=== PATIENT | male | born 1975 | race Two or more races ===

== ENCOUNTER 2017-09-09 03:07 | Emergency (ER) | payer MEDICAID, OTHER ==
[2017-09-09 03:17] VITALS: BP 128/82
--- NOTE | 2017-09-09 03:34 | EDM.PDOC ---
ED HPI GENERAL MEDICAL PROBLEM - General Chief Complaint: Chest Pain Stated Complaint: RIB PAIN Time Seen by Provider: 09/09/17 03:17 Source of Information: Reports: Patient, Family () History Limitations: Reports: No Limitations - History of Present Illness INITIAL COMMENTS - FREE TEXT/NARRATIVE: The patient states that he was roughhousing with some friends last night around 22:30, when a friend bearhug him, the patient twisted the wrong way, and he developed pain to the inferior aspect of his left ribs. He states that when he rolled over this morning, the pain became much worse. His pain is also made worse with a cough. The patient has not noticed a visible injury to the area. No prior injury to the same area. The patient's PCP is Basilia Muniz. Left Thoracic Pain Score (Numeric/FACES): 9 - Related Data Allergies Allergy/AdvReac Type Severity Reaction Status Date / Time No Known Allergies Allergy Verified 06/20/16 11:56 Home Meds: Home Meds Amoxicillin 875 mg PO BID 09/09/17 [History] Naproxen 500 mg PO ASDIRECTED PRN 09/09/17 [History] Orphenadrine [Norflex] 1 tab PO Q12H PRN #12 tab.er 09/09/17 [Rx] Orphenadrine [Norflex] 100 mg PO ASDIRECTED PRN 09/09/17 [History] Past Medical History Endocrine/Metabolic History: Reports: Obesity/BMI 30+ - Past Surgical History Musculoskeletal Surgical History: Reports: Arthroscopic Knee (left), Other (See Below) (Left 5th finger fusion) Social & Family History - Family History Family Medical History: Noncontributory - Tobacco Use Smoking Status *Q: Never Smoker - Caffeine Use Caffeine Use: Reports: Coffee, Soda - Alcohol Use Alcohol Use History: Yes Alcohol Use Frequency: Socially - Recreational Drug Use Recreational Drug Use: No - Living Situation & Occupation Living situation: Reports: , with Spouse, with Family (4 kids, grandson, son-in-law) Occupation: Employed ([employer]) ED ROS GENERAL - Review of Systems Review Of Systems: See Below Constitutional: Reports: No Symptoms HEENT: Reports: Other (Cold-like symptoms for the past week, including rhinorrhea, cough, sneezing) Respiratory: Reports: No Symptoms Cardiovascular: Reports: No Symptoms Endocrine: Reports: No Symptoms GI/Abdominal: Reports: No Symptoms : Reports: No Symptoms Musculoskeletal: Reports: No Symptoms Skin: Reports: No Symptoms Neurological: Reports: No Symptoms Psychiatric: Reports: No Symptoms Hematologic/Lymphatic: Reports: No Symptoms Immunologic: Reports: No Symptoms ED EXAM, GENERAL - Physical Exam Exam: See Below Exam Limited By: No Limitations General Appearance: Alert, WD/WN, No Apparent Distress Eye Exam: Bilateral Eye: Normal Inspection Ears: Normal External Exam, Hearing Grossly Normal Nose: Normal Inspection, No Blood Throat/Mouth: Normal Inspection, Normal Lips, Normal Voice, No Airway Compromise Head: Atraumatic, Normocephalic Neck: Normal Inspection, Full Range of Motion Respiratory/Chest: No Respiratory Distress, Lungs Clear, Normal Breath Sounds, No Accessory Muscle Use, Other (No visible abnormality to the lower left ribs, anterior axial line, however, there is reproducible tenderness to palpation of the area. No rub to auscultation.). No: Crackles, Rhonchi, Wheezing, Pleural Rub Cardiovascular: Normal Peripheral Pulses, Regular Rate, Rhythm, No Gallop, No JVD, No Murmur, No Rub Peripheral Pulses: 4+: Radial (L), Radial (R) GI/Abdominal: Normal Bowel Sounds, Soft, Non-Tender, No Organomegaly, No Distention, No Abnormal Bruit, No Mass (Male) Exam: Deferred Rectal (Males) Exam: Deferred Back Exam: Normal Inspection, Full Range of Motion, NT Extremities: Normal Inspection, Normal Range of Motion, Normal Capillary Refill Neurological: Alert, Oriented, Normal Cognition, No Motor/Sensory Deficits Psychiatric: Normal Affect Skin Exam: Warm, Dry, Intact, Normal Color, No Rash Course - Vital Signs Last Recorded V/S: Last Vital Signs Temp 36.4 C 09/09/17 03:14 Pulse 80 09/09/17 03:14 Resp 16 09/09/17 03:14 BP 128/82 09/09/17 03:14 Pulse Ox 98 09/09/17 03:14 - Orders/Labs/Meds Orders: Active Orders 24 hr Category Date Time Status Chest 2V [CR] Stat Exams 09/09/17 03:28 Ordered Ibuprofen [Motrin] Med 09/09/17 03:45 Once 800 mg PO ONETIME ONE Orphenadrine [Norflex] Med 09/09/17 03:44 Stat 100 mg PO ONETIME STA - Re-Assessments/Exams Free Text/Narrative Re-Assessment/Exam: 09/09/17 03:45 Two-view chest radiograph appears to be grossly normal. Cardiac silhouette is within normal limits. No pulmonary vascular congestion. No pleural effusions. No focal infiltrate. No pneumothorax. Formal read per the Radiologist pending. 09/09/17 03:45 The patient's left-sided pain is most likely due to a muscle spasm. I have ordered Norflex and ibuprofen. Departure - Departure Time of Disposition: 03:48 Disposition: Home, Self-Care 01 Condition: Good Clinical Impression: Muscle spasm - Discharge Information Referrals: Basilia Muniz PA-C [Primary Care Provider] - Forms: ED Department Discharge Additional Instructions: You were seen in the emergency room after developing left sided pain after roughhousing with some friends. Workup in the ER included a chest x-ray, which returned normal. No sign of a broken rib or other injury. Your pain is MOST LIKELY due to a muscle spasm. You have been started on the muscle relaxant Norflex. A prescription for this has been sent to the Pharmacy, [address] They will be open today between noon and 4:00 PM. Take one tablet of Norflex every 12 hours, as prescribed. Take [id number] ibuprofen, 2-3 tablets (400-600 mg) every 8 hours, with food, as needed for pain. If your pain continues until Sunday, please follow-up with your PCP, Basilia Muniz. If any other problems, please do not hesitate to return to the ER. - My Orders Last 24 Hours: My Active Orders 09/09/17 03:28 Chest 2V [CR] Stat 09/09/17 03:44 Orphenadrine [Norflex] 100 mg PO ONETIME STA 09/09/17 03:45 Ibuprofen [Motrin] 800 mg PO ONETIME ONE - Assessment/Plan Last 24 Hours: My Active Orders 09/09/17 03:28 Chest 2V [CR] Stat 09/09/17 03:44 Orphenadrine [Norflex] 100 mg PO ONETIME STA 09/09/17 03:45 Ibuprofen [Motrin] 800 mg PO ONETIME ONE
[2017-09-09] MEDS ORDERED: Orphenadrine 100 MG Tab.ER PO STA (03:44)
[2017-09-09] MEDS ORDERED: Ibuprofen 800 MG Tab PO ONE (03:45)
--- NOTE | 2017-09-09 12:00 | CR ---
Chest: Two views of the chest were obtained. Comparison: No prior study. Heart size and mediastinum are normal. Lungs are clear. Bony structures are unremarkable. Impression: 1. Nothing acute is identified on two-view chest x-ray. Diagnostic code #1
== END 2017-09-09 04:04 | disposition home or self-care (01) ==
LOC: JD.ED 03:07
DX: M62.838 Other muscle spasm (principal); X50.1XXA Overexertion from prolonged static or awkward postures, initial encounter
CPT/HCPCS: 71046; 99283; A9270

== ENCOUNTER 2018-04-14 22:34 | Emergency (ER) | payer BC ==
[2018-04-14 22:51] VITALS: BP 159/101
[2018-04-14] MEDS ORDERED: HYDROmorphone 1 MG/ML Syringe IVPUSH ONE (23:20)
[2018-04-14] MEDS ORDERED: Sodium Chloride 0.9% 10 ML Syringe FLUSH PRN (23:20)
[2018-04-14] MEDS ORDERED: Dexamethasone 4 MG/ML 5 ML MDV IV ONE (23:20)
[2018-04-14] MEDS ORDERED: Clindamycin Phosphate 600 MG in Sodium Chloride 0.9% 100 ML IV ONE (23:21)
[2018-04-14] MEDS ORDERED: Metoclopramide 10 MG/2 ML SDV IVPUSH ONE (23:21)
--- NOTE | 2018-04-14 23:22 | EDM.PDOC ---
ED HPI GENERAL MEDICAL PROBLEM - General Chief Complaint: ENT Problem Stated Complaint: LEFT SIDE OF BODY FACE PAIN AND NECK AND SHOULDER Time Seen by Provider: 04/14/18 23:20 Source of Information: Reports: Patient History Limitations: Reports: No Limitations - History of Present Illness INITIAL COMMENTS - FREE TEXT/NARRATIVE: 42-year-old male attends the ED with severe left artemio-facial pain related to dental infection. Patient is currently following up with a dentist and is having dental work completed. Identified to have a dental infection and was started on amoxicillin 500 mg 3 times daily last week. He states he was doing pretty good up until tonight when the pain suddenly increased severely. Pain shoots up underneath his left eye shoots into his left ear along the mandible and along the left side of his neck. Patient has numerous severely decayed teeth both upper and lower on the left side. No fever or chills. He comes to the ED primarily seeking pain medication is nothing at home is helping. Onset: Today Onset Date: 04/14/18 Onset Time: 21:30 Duration: Minutes:, Constant, Getting Worse Location: Reports: Face (Left hemifacial pain.), Radiates to (Left mandible left ear and up underneath his left eye) Quality: Reports: Ache, Pressure, Throbbing, Other Severity: Severe (Pounding severe constant pain) Improves with: Reports: None ( 10 out of 10) Worsens with: Reports: None Context: Reports: Other (No on multiple dental caries both upper and lower left) . Denies: Activity, Exercise, Lifting, Sick Contact, Trauma Treatments MAGAZINE FEEDER: Reports: Acetaminophen ( side.), NSAIDS (Motrin.) Left Shoulder Pain Score (Numeric/FACES): 10 - Related Data Allergies Allergy/AdvReac Type Severity Reaction Status Date / Time No Known Allergies Allergy Verified 04/14/18 22:45 Home Meds: Home Meds Amoxicillin 1 tab PO TID 04/14/18 [History] Clindamycin HCl 300 mg PO TID #21 capsule 04/15/18 [Rx] oxyCODONE HCl/Acetaminophen [Percocet 5-325 mg Tablet] 1 - 2 each PO Q4H PRN # 20 tablet 04/15/18 [Rx] Past Medical History - Past Health History Medical/Surgical History: Denies Medical/Surgical History Genitourinary History: Reports: Renal Calculus Musculoskeletal History: Reports: Fracture Other Musculoskeletal History: L Ankle, L oink, middle and thumb fingers Endocrine/Metabolic History: Reports: Obesity/BMI 30+ - Past Surgical History Male Surgical History: Reports: None Musculoskeletal Surgical History: Reports: Arthroscopic Knee Social & Family History - Family History Family Medical History: Noncontributory - Tobacco Use Smoking Status *Q: Never Smoker Second Hand Smoke Exposure: No - Caffeine Use Caffeine Use: Reports: Coffee, Soda, Tea - Recreational Drug Use Recreational Drug Use: No - Living Situation & Occupation Living situation: Reports: , with Spouse, with Family (4 kids, grandson, son-in-law) Occupation: Employed ([employer]) ED ROS ENT - Review of Systems Review Of Systems: See Below Constitutional: Reports: Decreased Appetite. Denies: Fever, Chills, Malaise, Weakness, Fatigue, Weight Loss HEENT: Reports: Dental Pain (Severe dental pain left upper teeth. He's not sure which tooth is causing the pain but it appears most likely it is a broken off canine tooth.), Ear Pain (Pain is referred to the left ear.), Other Respiratory: Reports: No Symptoms (Pain left mandible and down the left side of his neck) Cardiovascular: Reports: No Symptoms Endocrine: Reports: No Symptoms GI/Abdominal: Reports: No Symptoms : Reports: No Symptoms Musculoskeletal: Reports: No Symptoms Skin: Reports: No Symptoms Neurological: Reports: No Symptoms Psychiatric: Reports: No Symptoms Hematologic/Lymphatic: Reports: No Symptoms Immunologic: Reports: No Symptoms ED EXAM, ENT - Physical Exam Exam: See Below Exam Limited By: No Limitations General Appearance: Alert, Moderate Distress (Moderate to severe pain.) Eye Exam: Bilateral Eye: Normal Inspection Ears: Normal TMs Mouth/Throat: Dental Abcess, Dental Pain (Patient has severe dental caries involving the left lower molars where there were 60% destroyed by dental caries. On the upper he has a canine tooth that is broken off at the gingiva margin which I suspect is causing the current infective process. The bicuspid teeth and his first molar are severely decayed as well however. Any of the 4 could be causing his dental pain and infection.), Other (No facial swelling but tenderness in the distribution of the maxillary sinus.). No: Gum Swelling, Hoarse Voice, Lip Swelling, Lip Ulcers, Muffled Voice, Oral Ulcers, Perioral Cyanosis, Peritonsillar Mass, Pharyngeal Erythema, Teething, Throat Pain, Throat Swelling, Tongue Swelling, Tonsillar Erythema, Tonsillar Exudates, Tonsillar Swelling, Trismus Head: Facial Tenderness (Left artemio-face particularly left maxillary sinus and left mandible anterior to his ear. There is no preauricular adenopathy) Neck: Normal Inspection, Supple, Non-Tender, Full Range of Motion. No: Lymphadenopathy (L), Lymphadenopathy (R) Respiratory/Chest: No Respiratory Distress, Lungs Clear, No Accessory Muscle Use , Respiratory Distress (Tachypnea gone exam but it's due to pain response.) Cardiovascular: Normal Peripheral Pulses, Regular Rate, Rhythm, No Murmur, Bradycardia (60/m) Course - Vital Signs Last Recorded V/S: Last Vital Signs Temp 36.6 C 04/14/18 22:46 Pulse 59 L 04/14/18 22:46 Resp 20 04/14/18 22:46 BP 159/101 H 04/14/18 22:46 Pulse Ox 99 04/14/18 22:46 - Orders/Labs/Meds Orders: Active Orders 24 hr Category Date Time Status Peripheral IV Care [RC] . DIRECTED Care 04/14/18 23:20 Active Ketorolac [Toradol] Med 04/14/18 23:30 Active 30 mg IVPUSH ONETIME Sodium Chloride 0.9% [Saline Flush] Med 04/14/18 23:20 Active 10 ml FLUSH ASDIRECTED PRN Peripheral IV Insertion Adult [OM.PC] Stat Oth 04/14/18 23:20 Ordered Medication Orders Ketorolac Tromethamine (Toradol) 30 mg IVPUSH ONETIME MARTÍN Last Admin: 04/14/18 23:39 Dose: 30 mg Sodium Chloride (Saline Flush) 10 ml FLUSH ASDIRECTED PRN PRN Reason: Keep Vein Open Last Admin: 04/14/18 23:43 Dose: 10 ml Meds: Medications Generic Name Dose Route Start Last Admin Trade Name Freq PRN Reason Stop Dose Admin Ketorolac Tromethamine 30 mg 04/14/18 23:30 04/14/18 23:39 Toradol IVPUSH 30 mg ONETIME MARTÍN Administration Sodium Chloride 10 ml 04/14/18 23:20 04/14/18 23:43 Saline Flush FLUSH 10 ml ASDIRECTED PRN Administration Keep Vein Open Discontinued Medications Generic Name Dose Route Start Last Admin Trade Name Sandie PRN Reason Stop Dose Admin Dexamethasone 10 mg 04/14/18 23:20 Dexamethasone IV 04/14/18 23:21 ONETIME ONE Dexamethasone Confirm 04/14/18 23:32 04/14/18 23:45 Dexamethasone Administered 04/14/18 23:33 Not Given Dose 10 mg .ROUTE .STK-MED ONE Dexamethasone 10 mg 04/14/18 23:43 04/14/18 23:44 Dexamethasone IVPUSH 04/14/18 23:44 10 mg ONETIME ONE Administration Hydromorphone HCl 1 mg 04/14/18 23:20 04/14/18 23:37 Dilaudid IVPUSH 04/14/18 23:21 1 mg ONETIME ONE Administration Clindamycin Phosphate 600 mg/ 104 mls @ 100 mls/hr 04/14/18 23:21 04/14/18 23 :47 Sodium Chloride IV 04/15/18 00:23 100 mls/hr ONETIME ONE Administration Metoclopramide HCl 10 mg 04/14/18 23:21 04/14/18 23:35 Reglan IVPUSH 04/14/18 23:22 10 mg ONETIME ONE Administration - Radiology Interpretation Free Text/Narrative:: 42-year-old male presents to the ED with severe left hemifacial pain for the last 2-1/2 hours. Patient has known multiple bad teeth both upper and lower on the left side and is currently seeing a dentist in this regard diagnosed with a dental abscess last week and placed on amoxicillin 500 mg 3 times a day which she is still taking. States he was doing fine up until about 2 and half hours ago when the pain started to become very severe in the left artemio-face. Pain is rating up towards his left eye towards his left ear into the mandible and down the left side of his neck. Can't stand the pain and nothing at home is helped. On examination he has severe dental caries involving the canine tooth first and second bicuspids and the first molar of the left upper maxilla. He has severe dental caries involving the first and second molars on the left lower mandible. Clinically has a dental abscess that is not responding to amoxicillin. Plan -- saline lock. Will be given Dilaudid 1 mg IV with Toradol 30 mg IV and Reglan 10 mg IV for pain relief. Will give dexamethasone 10 mg IV also to help reduce some of the swelling. Will be given clindamycin 600 mg IV. - Re-Assessments/Exams Free Text/Narrative Re-Assessment/Exam: 04/15/18 00:51 patient is feeling much improved. Pain is down to 1 or less. He was actually able to fall asleep for about an hour. He has completed 600 mg of intravenous clindamycin. Therefore be discharged to home on clindamycin 300 mg 3 times a day for another week to clear up dental infection. Percocet tabs 5/3/ 25 milligrams strength likely 2 tablets every 4 hours as needed for pain relief. He will try and follow-up with his dentist tomorrow the next day to have these teeth extracted. Will be given meds through the [employer] [facility] Departure - Departure Time of Disposition: 00:52 Disposition: Home, Self-Care 01 Condition: Fair Clinical Impression: Dental abscess - Discharge Information *PRESCRIPTION DRUG MONITORING PROGRAM REVIEWED*: No *COPY OF PRESCRIPTION DRUG MONITORING REPORT IN PATIENT RAKEL: No Prescriptions: Clindamycin HCl 300 mg PO TID #21 capsule oxyCODONE HCl/Acetaminophen [Percocet 5-325 mg Tablet] 1 - 2 each PO Q4H PRN # 20 tablet PRN Reason: pain relief. Instructions: Dental Abscess, [id number] Referrals: Trista Staples PA-C [Primary Care Provider] - Forms: ED Department Discharge Additional Instructions: Evaluation the emergency room tonight in regards to worsening dental pain left upper teeth. I suspect the culprit tooth is actually this severely decayed canine tooth which is broken off even with the gingiva margin. The tissue around this area is exquisitely swollen. However the second bicuspid and near first 2 molars are severely decayed as well any of which could be contributing to the infected process. In spite of being on amoxicillin for dental infection infection seems to be spreading causing pain anterior face and ear and jaw. Therefore you were treated with intravenous medication for pain in the ED Dilaudid 1 mg and Reglan 10 mg IV for nausea relief. Toradol 30 mg was given IV as well for pain relief. IV antibiotic was clindamycin 600 mg 2 start working on the infected process. Treatment at home is to discontinue the amoxicillin tablet. Replace with clindamycin 300 mg 3 times daily for the next 7 days until you can get into the dentist to have the tooth/teeth extracted. May use Percocet tabs 5-25 mg strength one or 2 every 4-6 hours needed for pain relief. Suggest continuing with Motrin 600 mg every 6 hours as well to reduce pain and inflammation. Of course follow-up with dentist as soon as able. - My Orders Last 24 Hours: My Active Orders 04/14/18 23:20 Peripheral IV Care [RC] . DIRECTED Sodium Chloride 0.9% [Saline Flush] 10 ml FLUSH ASDIRECTED PRN Peripheral IV Insertion Adult [OM.PC] Stat 04/14/18 23:30 Ketorolac [Toradol] 30 mg IVPUSH ONETIME - Assessment/Plan Last 24 Hours: My Active Orders 04/14/18 23:20 Peripheral IV Care [RC] . DIRECTED Sodium Chloride 0.9% [Saline Flush] 10 ml FLUSH ASDIRECTED PRN Peripheral IV Insertion Adult [OM.PC] Stat 04/14/18 23:30 Ketorolac [Toradol] 30 mg IVPUSH ONETIME
[2018-04-14] MEDS ORDERED: Ketorolac 30 MG/ML SDV IVPUSH SCH (23:30)
[2018-04-14] MEDS ORDERED: Dexamethasone 10 MG/ML SDV ONE (23:32)
[2018-04-14] MEDS ORDERED: Dexamethasone 10 MG/ML SDV IVPUSH ONE (23:43)
== END 2018-04-15 01:07 | disposition home or self-care (01) ==
LOC: JD.ED 22:34
DX: K04.7 Periapical abscess without sinus (principal); E66.9 Obesity, unspecified
CPT/HCPCS: 96365; 96375; 99283; J1100; J1170; J1885; J2765; J3490; J7030; J7050; 99284

== ENCOUNTER 2018-04-28 02:06 | Emergency (ER) | payer BC ==
[2018-04-28 02:15] VITALS: BP 169/106
--- NOTE | 2018-04-28 02:29 | EDM.PDOC ---
ED HPI GENERAL MEDICAL PROBLEM - General Chief Complaint: ENT Problem Stated Complaint: RIGHT SIDE OF FACE AND NECK PAIN Time Seen by Provider: 04/28/18 02:11 Source of Information: Reports: Patient History Limitations: Reports: No Limitations - History of Present Illness INITIAL COMMENTS - FREE TEXT/NARRATIVE: Patient presents with recurrent left sided dental pain. History of bad teeth and was seen and evaluated here in the department on April 16. He was given IV clindamycin has been on clindamycin still has a few more days. He was scheduled to see the dentist on the 27th hour he had not account for business. He had since when he ran out of his pain medicines had increasing pain again. No fevers no swallowing difficulty no shortness of breath or breathing problems. No history of any heart murmur, no history of any underlying immune dysfunction. No sublingual swelling, no sinus congestion, does have some left- sided ear pain. No facial swelling noted. Left Face Pain Score (Numeric/FACES): 10 - Related Data Allergies Allergy/AdvReac Type Severity Reaction Status Date / Time No Known Allergies Allergy Verified 04/14/18 22:45 Home Meds: Home Meds Acetaminophen/oxyCODONE [Percocet 325-5 MG] 1 each PO Q6HR PRN 4 Days #12 tab [Rx] Past Medical History - Past Health History Medical/Surgical History: Denies Medical/Surgical History Genitourinary History: Reports: Renal Calculus Musculoskeletal History: Reports: Fracture Other Musculoskeletal History: L Ankle, L oink, middle and thumb fingers Endocrine/Metabolic History: Reports: Obesity/BMI 30+ - Past Surgical History Male Surgical History: Reports: None Musculoskeletal Surgical History: Reports: Arthroscopic Knee Social & Family History - Family History Family Medical History: Noncontributory - Caffeine Use Caffeine Use: Reports: Coffee, Soda, Tea - Living Situation & Occupation Living situation: Reports: , with Spouse, with Family (4 kids, grandson, son-in-law) Occupation: Employed ([employer]) ED ROS ENT - Review of Systems Review Of Systems: See Below Constitutional: Reports: Decreased Appetite. Denies: Fever, Chills HEENT: Reports: Dental Pain, Ear Pain. Denies: Nose Pain, Rhinitis, Throat Pain Respiratory: Denies: Shortness of Breath, Cough Cardiovascular: Denies: Chest Pain GI/Abdominal: Denies: Abdominal Pain Neurological: Denies: Headache ED EXAM, ENT - Physical Exam Exam: See Below Exam Limited By: No Limitations General Appearance: Alert, WD/WN Ears: Normal TMs Nose: Normal Inspection Mouth/Throat: Normal Inspection, Normal Gums, Normal Lips, Normal Oropharynx, Dental Pain, Dental Tenderness, Other (Severe dental caries especially to tooth #14 and 15 along with tooth #18. No signs of any obvious pointing abscess, no sublingual swelling no trismus noted. No facial cellulitis.) Course - Vital Signs Text/Narrative:: Dental painof any abscess, no Joni angina, no trismus. No facial cellulitis. Dental pain from dental caries. Reviewed risks benefits alternatives to dental block to the upper and lower teeth with half percent Marcaine patient tolerated well. We'll send him home with Percocet, flex, he will try to get into the dentist this next week otherwise he does have a appointment on the . Return percussion is otherwise given. Did reviewed P DMP website and his last prescription was on the April 16 other prescribers noted. Last Recorded V/S: Last Vital Signs Temp 97.8 F 04/28/18 02:11 Pulse 78 04/28/18 02:11 Resp 16 04/28/18 02:11 BP 169/106 H 04/28/18 02:11 Pulse Ox 98 04/28/18 02:11 Departure - Departure Time of Disposition: 03:05 Disposition: Home, Self-Care 01 Clinical Impression: Dental caries, Toothache, Dental abscess - Discharge Information *PRESCRIPTION DRUG MONITORING PROGRAM REVIEWED*: Yes *COPY OF PRESCRIPTION DRUG MONITORING REPORT IN PATIENT RAKEL: No Instructions: Diet and Dental Disease, Dental Abscess, [id number] Referrals: Basilia Muniz PA-C [Primary Care Provider] - Forms: ED Department Discharge
[2018-04-28] MEDS ORDERED: Acetaminophen/oxyCODONE 325-5 MG Tab PO ONE (03:10)
[2018-04-28] MEDS ORDERED: Cephalexin 500 MG Cap PO SCH ×2 (03:23→06:00)
== END 2018-04-28 03:29 | disposition home or self-care (01) ==
LOC: JD.ED 02:06
DX: K04.7 Periapical abscess without sinus (principal); K02.9 Dental caries, unspecified
CPT/HCPCS: 64400; 99283; A9270

== ENCOUNTER 2019-05-15 11:35 | Emergency (ER) | payer BC, MEDICAID ==
[2019-05-15 11:49] VITALS: BP 125/105; PULSE 70
[2019-05-15] MEDS ORDERED: Ketorolac 60 MG/2 ML SDV IM ONE (12:42)
--- NOTE | 2019-05-15 12:55 | EDM.PDOC ---
ED HPI GENERAL MEDICAL PROBLEM - General Chief Complaint: Headache Stated Complaint: HEADACHE Time Seen by Provider: 05/15/19 12:25 Source of Information: Reports: Patient History Limitations: Reports: No Limitations - History of Present Illness INITIAL COMMENTS - FREE TEXT/NARRATIVE: 43-year-old male presents for evaluation and treatment of headache and sinusitis. Patient reports he has been ill for the last 4 days with constant sinus pain. He was seen at the walk-in clinic Sunday. Had right ear pain and sinus pressure. He was diagnosed with a sinus infection. Prescribed doxycycline. States since taking that he feels "weird". He has now developed a headache. States that he has some abdominal discomfort and diarrhea. No fevers, chills, nausea or vomiting. Reports photophobia. States that he was given an albuterol inhaler but has not been using this. He also reports that he was given Tessalon Perles for a cough which are not helping. He tried over-the- counter ibuprofen one time and some NyQuil. Reports that everybody at home has been ill. Headache Pain Score (Numeric/FACES): 10 - Related Data Allergies Allergy/AdvReac Type Severity Reaction Status Date / Time No Known Allergies Allergy Verified 05/15/19 11:49 Home Meds: Home Meds Albuterol [Proventil HFA] 2 puff INH Q4H PRN 05/15/19 [History] Amoxicillin/Potassium Clav [Augmentin 875-125 Tablet] 1 each PO BID #20 tablet 05/15/19 [Rx] Benzonatate [Tessalon Perle] 100 mg PO DAILY 05/15/19 [History] Past Medical History - Past Health History Medical/Surgical History: Denies Medical/Surgical History HEENT History: Reports: None Cardiovascular History: Reports: None Respiratory History: Reports: None Gastrointestinal History: Reports: None Genitourinary History: Reports: Renal Calculus Musculoskeletal History: Reports: Fracture Other Musculoskeletal History: L Ankle, L oink, middle and thumb fingers Neurological History: Reports: None Psychiatric History: Reports: None Endocrine/Metabolic History: Reports: Obesity/BMI 30+ Hematologic History: Reports: None Immunologic History: Reports: None Oncologic (Cancer) History: Reports: None Dermatologic History: Reports: None - Infectious Disease History Infectious Disease History: Reports: None - Past Surgical History Head Surgeries/Procedures: Reports: None Male Surgical History: Reports: None Musculoskeletal Surgical History: Reports: Arthroscopic Knee Social & Family History - Family History Family Medical History: Noncontributory - Tobacco Use Smoking Status *Q: Never Smoker - Caffeine Use Caffeine Use: Reports: Coffee, Soda - Recreational Drug Use Recreational Drug Use: No - Living Situation & Occupation Living situation: Reports: , with Spouse, with Family (4 kids, grandson, son-in-law) Occupation: Employed ([employer]) ED ROS GENERAL - Review of Systems Review Of Systems: See Below Constitutional: Denies: Fever, Chills HEENT: Reports: Ear Pain (right), Sinus Problem, Other (reports photophobia) Respiratory: Reports: Cough Neurological: Reports: Headache - Physical Exam Exam: See Below Exam Limited By: No Limitations General Appearance: Alert, WD/WN, Mild Distress, Obese Eye Exam: Bilateral Eye: Normal Inspection, PERRL Ears: Normal External Exam, Normal Canal, Hearing Grossly Normal, Normal TMs, Other (TMs ar erythematous bilterally, no acute infection appreciated ) Nose: Normal Inspection Throat/Mouth: Normal Inspection, Normal Lips, Normal Voice, No Airway Compromise Head Exam: Sinus Tenderness (bilateral maxillary and frontal ) Respiratory/Chest: No Respiratory Distress, Lungs Clear, Normal Breath Sounds Cardiovascular: Normal Peripheral Pulses, Regular Rate, Rhythm, No Murmur Neuro Exam (Abbreviated): Alert, Oriented, Normal Cognition Psychiatric: Normal Affect, Normal Mood Skin Exam: Warm, Dry, Normal Color Course - Vital Signs Last Recorded V/S: Last Vital Signs Temp 96.7 F 05/15/19 11:45 Pulse 70 05/15/19 11:45 Resp 16 05/15/19 11:45 BP 125/105 H 05/15/19 11:45 Pulse Ox 99 05/15/19 11:45 - Orders/Labs/Meds Meds: Medications Discontinued Medications Generic Name Dose Route Start Last Admin Trade Name Freq PRN Reason Stop Dose Admin Ketorolac Tromethamine 60 mg 05/15/19 12:42 05/15/19 13:00 Toradol IM 05/15/19 12:43 60 mg ONETIME ONE Administration - Radiology Interpretation Free Text/Narrative:: Two-view chest x-ray shows no acute intrathoracic process. Formal radiology read pending. - Re-Assessments/Exams Free Text/Narrative Re-Assessment/Exam: 05/15/19 14:19 Checked on the patient. His chest x-ray shows no acute pneumonia. I will switch him from doxycycline to Augmentin to avoid side effects. Suspect headache is from the doxy as he developed this after starting the doxy. Discharge instructions as documented. Departure - Departure Time of Disposition: 14:20 Disposition: Home, Self-Care 01 Condition: Good Clinical Impression: Sinusitis, Headache - Discharge Information *PRESCRIPTION DRUG MONITORING PROGRAM REVIEWED*: No *COPY OF PRESCRIPTION DRUG MONITORING REPORT IN PATIENT RAKEL: No Prescriptions: Amoxicillin/Potassium Clav [Augmentin 875-125 Tablet] 1 each PO BID #20 tablet Instructions: Sinusitis, Adult Referrals: Basilia Muniz PA-C [Primary Care Provider] - Forms: ED Department Discharge, ED Return to Work/School Form Additional Instructions: Stop the doxycycline and start Augmentin 1 tab twice a day for 10 days. Take this medication with food. Recommend yogurt or probiotic to help reduce side effects of upset stomach, nausea and diarrhea. [id number] Tylenol Motrin as needed for headaches and bodyaches. Make sure you are drinking plenty of fluids. Follow up with your primary care provider if not much better within 2 weeks. Also recommend following up with primary care provider for any blood pressure concerns. Recommend checking your blood pressure 2 or 3 times a week at different times throughout the day. Do not check your blood pressure if you are feeling anxious , stressed are in pain or sick. Recommend resting for about 10-15 minutes prior to checking her blood pressure. Record this and follow-up with your primary care provider as needed for this. Please return to the ER if your symptoms change or worsen.
--- NOTE | 2019-05-19 07:10 | CR ---
Chest: PA and lateral views of the chest were obtained. Comparison: Prior chest x-ray of 09/09/17. Heart size and mediastinum are normal. Lungs are clear. Bony structures are unremarkable. Impression: 1. Nothing acute is seen on two-view chest x-ray. Diagnostic code #1
== END 2019-05-15 14:40 | disposition home or self-care (01) ==
LOC: JD.ED 11:35
DX: J32.9 Chronic sinusitis, unspecified (principal); E66.9 Obesity, unspecified; Z68.42 Body mass index [BMI] 45.0-49.9, adult
CPT/HCPCS: 71046; 96372; 99284; J1885

== ENCOUNTER 2019-07-21 16:42 | Emergency (ER) | payer SELFPAY ==
[2019-07-21 16:56] VITALS: BP 176/109; PULSE 69
--- NOTE | 2019-07-21 17:30 | EDM.PDOC ---
ED HPI GENERAL MEDICAL PROBLEM - General Chief Complaint: Headache Stated Complaint: HEADACHE X 4 DAYS Time Seen by Provider: 07/21/19 17:01 Source of Information: Reports: Patient, RN Notes Reviewed - History of Present Illness INITIAL COMMENTS - FREE TEXT/NARRATIVE: 43-year-old male took a hard blow to his right for head 4 days ago. 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 He thinks he was "out for about 5-10 minutes". He had quite severe headache that day and has continued to have headache. Some nausea vomiting for the next morning. He continues to have nonspecific dizziness. There is been no further vomiting. His is "making him come in" at this time for evaluation. He states he did suffer a concussion many years ago. No chest pain or difficulty breathing. No neck or back pain. No focal weakness. Headache Pain Score (Numeric/FACES): 10 - Related Data Allergies Allergy/AdvReac Type Severity Reaction Status Date / Time No Known Allergies Allergy Verified 07/21/19 16:56 Home Meds: Home Meds . [No Known Home Meds] 07/21/19 [History] Past Medical History - Past Health History Medical/Surgical History: Denies Medical/Surgical History HEENT History: Reports: None Cardiovascular History: Reports: None Respiratory History: Reports: None Gastrointestinal History: Reports: None Genitourinary History: Reports: Renal Calculus Musculoskeletal History: Reports: Fracture Other Musculoskeletal History: L Ankle, L oink, middle and thumb fingers, l knee surgery Neurological History: Reports: None Psychiatric History: Reports: None Endocrine/Metabolic History: Reports: Obesity/BMI 30+ Hematologic History: Reports: None Immunologic History: Reports: None Oncologic (Cancer) History: Reports: None Dermatologic History: Reports: None - Infectious Disease History Infectious Disease History: Reports: None - Past Surgical History Head Surgeries/Procedures: Reports: None Male Surgical History: Reports: None Musculoskeletal Surgical History: Reports: Arthroscopic Knee Social & Family History - Family History Family Medical History: Noncontributory - Tobacco Use Smoking Status *Q: Never Smoker Second Hand Smoke Exposure: No - Caffeine Use Caffeine Use: Reports: Coffee - Recreational Drug Use Recreational Drug Use: No - Living Situation & Occupation Living situation: Reports: , with Spouse, with Family (4 kids, grandson, son-in-law) Occupation: Employed ([employer]) ED ROS GENERAL - Review of Systems Review Of Systems: See Below Constitutional: Denies: Fever, Chills, Diaphoresis HEENT: Denies: Ear Discharge, Vertigo, Vision Change Respiratory: Denies: Shortness of Breath Cardiovascular: Denies: Chest Pain GI/Abdominal: Reports: Nausea, Vomiting. Denies: Abdominal Pain Musculoskeletal: Denies: Neck Pain, Back Pain Skin: Reports: Other (He did have swelling of the right for head, that is gone) Neurological: Reports: Dizziness, Headache. Denies: Numbness, Tingling, Trouble Speaking, Difficulty Walking, Weakness ED EXAM, HEAD INJURY - Physical Exam Exam: See Below General Appearance: Alert, No Apparent Distress Head: Other (There is tenderness of the right eyebrow, right for head, no other facial tenderness, no visible bruising or swelling at this time) Eyes: Bilateral Eye: EOMI, PERRL Ears: Normal External Exam Nose: Normal Inspection Throat/Mouth: Normal Inspection Neck: Non-Tender, Full Range of Motion Respiratory: No Respiratory Distress, Lungs Clear, Normal Breath Sounds Cardiovascular: Regular Rate, Rhythm Extremities: Normal Inspection, Normal Range of Motion Neurologic: No Motor/Sensory Deficits, Normal Mood/Affect, Oriented x 3, Other ( Finger to nose testing normal) Skin: Normal Color, Warm/Dry Course - Vital Signs Last Recorded V/S: Last Vital Signs Temp 97.8 F 07/21/19 16:55 Pulse 69 07/21/19 16:55 Resp 18 07/21/19 16:55 BP 176/109 H 07/21/19 16:55 Pulse Ox 96 07/21/19 16:55 - Re-Assessments/Exams Free Text/Narrative Re-Assessment/Exam: 07/21/19 18:[address] is normal, with his continued symptoms of headache, nausea, dizziness he does have concussion, the treatment for concussion is rest and time, discharge instructions as documented. Departure - Departure Time of Disposition: 18:08 Disposition: Home, Self-Care 01 Condition: Fair Clinical Impression: Head concussion Qualifiers: Encounter type: initial encounter Loss of consciousness presence/duration: with LOC of 30 min or less Qualified Code(s): S06.0X1A - Concussion with loss of consciousness of 30 minutes or less, initial encounter - Discharge Information Instructions: Concussion, Adult, [id number] Referrals: Basilia Muniz PA-C [Primary Care Provider] - Forms: ED Department Discharge, ED Return to Work/School Form Additional Instructions: Rest, no strenuous physical activity recommended the remainder of this week, brain rest is also important. Tylenol every 6-8 hours if needed for headache. Try follow-up with Basilia at the clinic this coming Sunday or early next week. Return to ED as needed if symptoms worsening in any way.
--- NOTE | 2019-07-21 17:42 | CT ---
Head CT Technique: Multiple axial sections through the brain were obtained. Intravenous contrast was not utilized. Comparison: No prior intracranial imaging is available. Findings: Ventricles along with basal cisterns and sulci over the convexities appear within normal limits for the patient's age. No abnormal parenchymal densities are seen. No evidence of intracranial hemorrhage. No midline shift or mass effect is seen. Bone window settings were reviewed which shows minimal areas of mucosal thickening within the ethmoid sinuses which are felt to be incidental. Mastoid sinuses that are seen show nothing acute. No acute calvarial abnormality is appreciated. Impression: 1. Minimal sinus findings which are believed to be incidental. 2. Nothing acute is appreciated on noncontrast head CT exam. Diagnostic code #2
== END 2019-07-21 18:20 | disposition home or self-care (01) ==
LOC: JD.ED 16:42
DX: S06.0X1A Concussion with loss of consciousness of 30 minutes or less, initial encounter (principal); W22.8XXA Striking against or struck by other objects, initial encounter; Y93.89 Activity, other specified
CPT/HCPCS: 70450; 70450-26; 99283; 99284-25

== ENCOUNTER 2020-02-13 21:05 | Emergency (ER) | payer BC ==
[2020-02-13 21:17] VITALS: BP 148/102; PULSE 78
--- NOTE | 2020-02-13 21:27 | EDM.PDOC ---
ED HPI GENERAL MEDICAL PROBLEM - General Chief Complaint: Abdominal Pain Stated Complaint: STOMACH PAIN AND ABCESS Time Seen by Provider: 02/13/20 21:13 Source of Information: Reports: Patient History Limitations: Reports: No Limitations - History of Present Illness INITIAL COMMENTS - FREE TEXT/NARRATIVE: This is a 44-year-old male. A couple of weeks ago he was lifting an old shampoo were that was very heavy into the back of his truck he noted afterwards a small bump around his umbilicus. It is been bothering him on and off since that time but then today he moved a washer and dryer the bump got bigger and he is having more pain. Denies any nausea vomiting or diarrhea. He denies any fever or chills. He states that his skin color around the umbilicus is normal. Abdomen Pain Score (Numeric/FACES): 7 - Related Data Allergies Allergy/AdvReac Type Severity Reaction Status Date / Time No Known Allergies Allergy Verified 02/13/20 21:14 Home Meds: Home Meds . [No Known Home Meds] 07/21/19 [History] Past Medical History - Past Health History Medical/Surgical History: Denies Medical/Surgical History HEENT History: Reports: None Cardiovascular History: Reports: None Respiratory History: Reports: None Gastrointestinal History: Reports: None Genitourinary History: Reports: Renal Calculus Musculoskeletal History: Reports: Fracture Other Musculoskeletal History: L Ankle, L oink, middle and thumb fingers, l knee surgery Neurological History: Reports: Concussion Psychiatric History: Reports: None Endocrine/Metabolic History: Reports: Obesity/BMI 30+ Hematologic History: Reports: None Immunologic History: Reports: None Oncologic (Cancer) History: Reports: None Dermatologic History: Reports: None - Infectious Disease History Infectious Disease History: Reports: None - Past Surgical History Head Surgeries/Procedures: Reports: None Male Surgical History: Reports: None Musculoskeletal Surgical History: Reports: Arthroscopic Knee Social & Family History - Family History Family Medical History: Noncontributory - Tobacco Use Smoking Status *Q: Never Smoker - Caffeine Use Caffeine Use: Reports: Coffee - Recreational Drug Use Recreational Drug Use: No - Living Situation & Occupation Living situation: Reports: , with Spouse, with Family (4 kids, grandson, son-in-law) Occupation: Employed ([employer]) ED ROS GENERAL - Review of Systems Review Of Systems: See Below Constitutional: Denies: Fever, Chills HEENT: Reports: No Symptoms Respiratory: Reports: No Symptoms Cardiovascular: Reports: No Symptoms Endocrine: Reports: No Symptoms GI/Abdominal: Reports: Abdominal Pain. Denies: Diarrhea, Nausea, Vomiting : Reports: No Symptoms Musculoskeletal: Reports: No Symptoms Skin: Reports: No Symptoms Neurological: Reports: No Symptoms Psychiatric: Reports: No Symptoms ED EXAM, GI/ABD - Physical Exam Exam: See Below Exam Limited By: No Limitations General Appearance: Alert, WD/WN, No Apparent Distress Eyes: Bilateral: Normal Appearance Ears: Normal External Exam Nose: Normal Inspection Throat/Mouth: Normal Inspection, Normal Lips, Normal Voice, No Airway Compromise Head: Normocephalic Neck: Supple Respiratory/Chest: No Respiratory Distress GI/Abdominal Exam: Normal Bowel Sounds, Soft, Other (Has an obvious umbilical hernia at the 3 o'clock position. It is bulging enough that is noticeable. It is tender such that I am not able to reduce it because he squirms too much. There is no redness of the skin or discoloration to suggest strangulation.) Back Exam: Full Range of Motion Extremities: Normal Inspection, Normal Range of Motion Neurological: Alert, Oriented Psychiatric: Normal Affect, Normal Mood Course - Vital Signs Last Recorded V/S: Last Vital Signs Temp 97.7 F 02/13/20 21:14 Pulse 78 02/13/20 21:14 Resp 16 02/13/20 21:14 BP 148/102 H 02/13/20 21:14 Pulse Ox 100 02/13/20 21:14 - Orders/Labs/Meds Labs: Laboratory Tests 02/13/20 Range/Units 21:36 WBC 9.53 H (4.23-9.07) K/mm3 RBC 4.67 (4.63-6.08) M/mm3 Hgb 13.9 (13.7-17.5) gm/dl Hct 40.7 (40.1-51.0) % MCV 87.2 (79.0-92.2) fl MCH 29.8 (25.7-32.2) pg MCHC 34.2 (32.2-35.5) g/dl RDW Std Deviation 39.8 (35.1-43.9) fL Plt Count 335 (163-337) K/mm3 MPV 9.4 (9.4-12.3) fl Neut % (Auto) 64.9 (34.0-67.9) % Lymph % (Auto) 25.6 (21.8-53.1) % [place] % (Auto) 6.2 (5.3-12.2) % Eos % (Auto) 2.7 (0.8-7.0) Baso % (Auto) 0.2 (0.1-1.2) % Neut # (Auto) 6.18 H (1.78-5.38) K/mm3 Lymph # (Auto) 2.44 (1.32-3.57) K/mm3 [place] # (Auto) 0.59 (0.30-0.82) K/mm3 Eos # (Auto) 0.26 (0.04-0.54) K/mm3 Baso # (Auto) 0.02 (0.01-0.08) K/mm3 - Re-Assessments/Exams Free Text/Narrative Re-Assessment/Exam: 02/13/20 22:11 I spoke to the patient regarding his CBC results. I am going to give him the surgeon on-call's name and number and he is to call them on Sunday to be seen and have this umbilical hernia repaired. In the meantime he knows that if this gets markedly worse or redness or more swelling occurs he needs to return to the ER over the weekend. Departure - Departure Time of Disposition: 22:12 Disposition: Home, Self-Care 01 Condition: Fair Clinical Impression: Umbilical hernia without obstruction and without gangrene Abdominal pain Qualifiers: Abdominal location: periumbilical Qualified Code(s): R10.33 - Periumbilical pain - Discharge Information *PRESCRIPTION DRUG MONITORING PROGRAM REVIEWED*: No *COPY OF PRESCRIPTION DRUG MONITORING REPORT IN PATIENT RAKEL: No Instructions: Umbilical Hernia, Adult Referrals: Basilia Muniz PA-C [Primary Care Provider] - Mega Mart MD [Physician] - Forms: ED Department Discharge Additional Instructions: Please get the pain medications from the [facility] machine in the lobby on your way home, call Dr. Mart Sunday at 8 AM regarding the umbilical hernia and the pain, if there is marked worsening of your pain over the weekend or the area starts getting larger or the skin turns red return to the ER for reevaluation, no lifting or straining of any kind until you see the surgeon, return to the ER as needed Sepsis Event Note (ED) - Evaluation Sepsis Screening Result: No Definite Risk - Focused Exam Vital Signs: Vital Signs Temp Pulse Resp BP Pulse Ox 02/13/20 21:14 97.7 F 78 16 148/102 H 100
== END 2020-02-13 22:34 | disposition home or self-care (01) ==
LOC: JD.ED 21:05
DX: K42.9 Umbilical hernia without obstruction or gangrene (principal); E66.9 Obesity, unspecified; Z68.42 Body mass index [BMI] 45.0-49.9, adult
CPT/HCPCS: 36415; 85025; 99283

== ENCOUNTER 2020-02-26 07:02 | Day surgery (SDC) | payer BC ==
[~2020-02-26 07:02] MED LIST: Lidocaine 1%/Sod Bicarbonate in NS 8.4% 1 ML Syringe IDERM PRN; Sodium Chloride 0.9% 10 ML Syringe FLUSH PRN
[2020-02-26] MEDS ORDERED: Bupivacaine 0.5%/EPINEPHrine 1:200,000 50 ML MDV ONE (07:09)
--- NOTE | 2020-02-26 07:37 | PCM.PREANE ---
Preanesthetic Assessment - Review of Systems General: No Symptoms Pulmonary: No Symptoms Cardiovascular: No Symptoms Gastrointestinal: No Symptoms Neurological: No Symptoms Other: Reports: None - Physical Assessment Vital Signs: Last Vital Signs Temp 97 F 02/26/20 07:15 Pulse 69 02/26/20 07:15 Resp 20 02/26/20 07:15 BP 143/105 H 02/26/20 07:15 Pulse Ox 100 02/26/20 07:15 ASA Class: 3 Mental Status: Alert & Oriented x3 Airway Class: Mallampati = 3 Dentition: Reports: [place](s), Broken Tooth/Teeth, Missing Tooth/Teeth, Caries (very poor dentition) Thyro-Mental Finger Breadths: 3 Mouth Opening Finger Breadths: 3 ROM/Head Extension: Full Lungs: Clear to Auscultation, Normal Respiratory Effort Cardiovascular: Regular Rate, Regular Rhythm - Allergies Allergies/Adverse Reactions: Allergies Allergy/AdvReac Type Severity Reaction Status Date / Time No Known Allergies Allergy Verified 02/25/20 13:01 - Acknowledgements Pt an Appropriate Candidate for the Planned Anesthesia: Yes Alternatives and Risks of Anesthesia Discussed w Pt/Guardian: Yes Pt/Guardian Understands and Agrees with Anesthesia Plan: Yes PreAnesthesia Questionnaire - Past Health History Medical/Surgical History: Denies Medical/Surgical History HEENT History: Reports: Sinusitis, Other (See Below) Other HEENT History: vision changes, pharyngitis Cardiovascular History: Reports: Hypertension Respiratory History: Reports: Other (See Below) Other Respiratory History: cough, URI Gastrointestinal History: Reports: Other (See Below) Other Gastrointestinal History: GI infection Genitourinary History: Reports: Renal Calculus Musculoskeletal History: Reports: Fracture Other Musculoskeletal History: finger deformity, joint pain, right knee pain, right wrist pain Neurological History: Reports: Concussion, Headaches, Chronic Endocrine/Metabolic History: Reports: Obesity/BMI 30+ (Morbid) Hematologic History: Reports: None Immunologic History: Reports: None Oncologic (Cancer) History: Reports: None Dermatologic History: Reports: None - Infectious Disease History Infectious Disease History: Reports: None - Past Surgical History Head Surgeries/Procedures: Reports: None Cardiovascular Surgical History: Reports: None Respiratory Surgical History: Reports: None GI Surgical History: Reports: None Male Surgical History: Reports: Lithotripsy (ES[facility]) Endocrine Surgical History: Reports: None Neurological Surgical History: Reports: None Musculoskeletal Surgical History: Reports: Arthroscopic Knee, Other (See Below) Other Musculoskeletal Surgeries/Procedures:: ORIF right 5th finger, menisectomy Oncologic Surgical History: Reports: None Dermatological Surgical History: Reports: None - SUBSTANCE USE Smoking Status *Q: Never Smoker Recreational Drug Use History: No - HOME MEDS Home Medications: Home Meds Acetaminophen [Tylenol Arthritis] 650 mg PO TID PRN 02/25/20 [History] - CURRENT (IN HOUSE) MEDS Current Meds: Current Medications Lactated Ringer's (Ringers, Lactated) 1,000 mls @ 125 mls/hr IV ASDIRECTED MARTÍN Stop: 02/26/20 23:00 Lidocaine/Sodium Bicarbonate (Buffered Lidocaine 1% In Ns 8.4%) 0.25 ml IDERM ONETIME PRN PRN Reason: Prior to IV Start Stop: 02/26/20 18:00 Sodium Chloride (Saline Flush) 10 ml FLUSH ASDIRECTED PRN PRN Reason: Keep Vein Open Stop: 02/26/20 18:00 Discontinued Medications Bupivacaine HCl/Epinephrine Bitart (Marcaine 0.5%/Epinephrine 1:200,000) Confirm Administered Dose 50 ml .ROUTE .STK-MED ONE Stop: 02/26/20 07:10
[2020-02-26] MEDS ORDERED: Propofol 200 MG/20 ML SDV ONE (07:39)
[2020-02-26] MEDS ORDERED: Rocuronium 50 MG/5 ML Vial ONE ×2 (07:39→07:40)
[2020-02-26] MEDS ORDERED: Succinylcholine/Sod PF 100 MG/5 ML SYRINGE IV ONE (07:40)
[2020-02-26] MEDS ORDERED: fentaNYL 250 MCG/5 ML SDV ONE (07:40)
[2020-02-26] MEDS ORDERED: Midazolam 1 MG/ML 2 ML SDV ONE (07:40)
[2020-02-26] MEDS ORDERED: Lidocaine 1% 4 ML ONE (07:43)
[2020-02-26] MEDS: Lactated Ringers 1,000 ML IV SCH ×2 (07:44→12:11)
[2020-02-26] MEDS ORDERED: ceFAZolin 1 GM Vial ONE (08:24)
[2020-02-26] MEDS ORDERED: HYDROmorphone 1 MG/ML Syringe ONE (08:58)
[2020-02-26] MEDS ORDERED: Ondansetron 4 MG/2 ML SDV ONE (08:59)
[2020-02-26] MEDS ORDERED: Lactated Ringers 1,000 ML ONE (09:02)
[2020-02-26] MEDS ORDERED: fentaNYL 100 MCG/2 ML SDV IVPUSH PRN (09:10)
[2020-02-26] MEDS ORDERED: HYDROmorphone 0.5 MG/0.5 ML Syringe IVPUSH PRN (09:10)
[2020-02-26] MEDS ORDERED: Ketorolac 30 MG/ML SDV ONE (09:29)
[2020-02-26] MEDS ORDERED: fentaNYL 100 MCG/2 ML SDV ONE (09:40)
--- NOTE | 2020-02-26 10:19 | PCM.POSTAN ---
POST ANESTHESIA ASSESSMENT - MENTAL STATUS Mental Status: Somnolent - VITAL SIGNS Vital Signs: Last Vital Signs Temp 97 F 02/26/20 10:05 Pulse 69 02/26/20 07:15 Resp 20 02/26/20 10:15 BP 112/71 02/26/20 10:15 Pulse Ox 95 02/26/20 10:15 - RESPIRATORY Respiratory Status: Respiratory Rate WNL, Airway Patent, O2 Saturation Stable, Supplemental Oxygen (oral a/w #100 and FM O2) - CARDIOVASCULAR CV Status: Pulse Rate WNL, Blood Pressure Stable - GASTROINTESTINAL GI Status: No Symptoms - PAIN Pain Score: 0 - POST OP HYDRATION Hydration Status: Adequate & Stable
--- NOTE | 2020-02-26 10:22 | PCM.PRNOTE ---
- Free Text/Narrative Note: Operative Report Date: 02/26/2020 Operation: laparoscopic umbilical hernia repair with mesh Surgeon: Mega Mart MD Findings: lipomatous fat within small, 2 cm umbilical hernia. Detailed Report: The patient was taken to the operating room and placed in supine position. General endotracheal anesthesia was initiated after performance of timeout. The patient's arms were tucked at his side, abdominal hair was clipped, and the abdomen was prepped and draped in usual sterile fashion. A Veress needle was inserted at Robins's point into the peritoneal cavity. Insufflation was set at 15 mmHg. Air was aspirated at the site of Veress insertion, and a bladed 5 mm port was inserted blindly at this site. The 5 mm 30 degree laparoscope was inserted into the abdomen, and additional 5 mm ports were placed under laparoscopic visualization. Additional ports were placed along the left lateral abdomen, one at the upper portion, one at the left lower quadrant. An additional 5 mm port was placed the right lower quadrant. Though the hernia defect was palpable manually, no obvious fascial defect was appreciated from within. There was a large amount of preperitoneal fat filling the fascial defect. There was no omental fat or viscera associated with the hernia. Hook electrocautery and graspers were used to pull down the peritoneum at this site, and the overlying peritoneum and associated umbilical fat were resected. With a good landing zone cleared for intraperitoneal onlay mesh, a 12 mm bladed trocar was inserted at the umbilicus through the fascial defect. A 11 cm diameter circular ventral light permanent mesh with biologic coating was inserted into the abdomen through the 12 mm trocar after having placed 0 Vicryl anchoring fascial sutures at 4 quadrants of the mesh. The fat associated with the hernia that had been resected was then removed through this umbilical site, and sent for pathologic analysis. Using the laparoscopic suture passer, 0 Vicryl was used to close the fascial defect primarily. Measurements and chavez were made on the skin to correspond with proper trans-fascial suture placement for the mesh. The trans-fascial sutures were then brought up through the fascia through small stab incisions at the superior, inferior, and lateral aspects of the hernia defect using the laparoscopic suture passer. The mesh appeared to lay nicely over the defect, and the edge of the mesh between the trans-fascial sutures was secured to the anterior abdominal wall using the secure strap tacker. Pneumoperitoneum was then released, and the 5 mm ports all removed. All incision sites for laparoscopic ports were closed with subcuticular absorbable suture. All incisions including the stab incisions for the trans-fascial sutures were dressed with Dermabond. The patient tolerated the procedure well. Mega Mart MD General Surgery
[2020-02-26 13:59] VITALS: BP 154/100; PULSE 87
--- NOTE | 2020-02-26 14:01 | PCM48HPAN ---
Post Anesthesia Note - EVALUATION WITHIN 48HRS OF ANESTHETIC Vital Signs in Normal Range: Yes Patient Participated in Evaluation: Yes Respiratory Function Stable: Yes (no apneic episodes noted) Airway Patent: Yes Cardiovascular Function Stable: Yes (no bradycardia episodes noted) Hydration Status Stable: Yes Pain Control Satisfactory: Yes Nausea and Vomiting Control Satisfactory: Yes Mental Status Recovered: Yes Vital Signs: Last Vital Signs Temp 97.3 F 02/26/20 13:57 Pulse 87 02/26/20 13:57 Resp 16 02/26/20 13:57 BP 154/100 H 02/26/20 13:57 Pulse Ox 94 L 02/26/20 13:57 - COMMENTS/OBSERVATIONS Free Text/Narrative:: Patient bis more awake, alert oriented, still complains on being very tired, however he was able to ambulate to bathroom by himself and urinate, no lightheadedness, nausea or dizziness noted. Patient is being discharged home.
== END 2020-02-26 14:12 | disposition home or self-care (01) ==
LOC: JD.SDS 07:02
PROVIDERS: ATTEND Surgery
DX: K42.9 Umbilical hernia without obstruction or gangrene (principal); D17.5 Benign lipomatous neoplasm of intra-abdominal organs; E66.9 Obesity, unspecified; Z68.42 Body mass index [BMI] 45.0-49.9, adult
CPT/HCPCS: 49585; 93005; C1781; J0330; J0690; J1170; J1885; J2001; J2250; J2405; J2704; J2710; J3010; J3490; J7120; 00790

== ENCOUNTER 2020-02-29 22:34 | Emergency (ER) | payer BC ==
[2020-02-29 22:56] VITALS: BP 149/115; PULSE 71
--- NOTE | 2020-02-29 23:24 | EDM.PDOC ---
ED HPI GENERAL MEDICAL PROBLEM - General Chief Complaint: Abdominal Pain Stated Complaint: ABDOMINAL PAIN Time Seen by Provider: 02/29/20 23:14 - History of Present Illness INITIAL COMMENTS - FREE TEXT/NARRATIVE: 44-year-old male presents the emergency room with abdominal pain. Patient had an umbilical surgery repair done on the second of this month. This was done here locally by Dr. Mart. The patient is complaining of pain and is hoping for some stronger pain medication. Patient denies any fevers or chills he is not having any nausea or vomiting. He is not having any constipation or diarrhea. But he is having quite a bit of discomfort especially with motion and activity. Abdomen Pain Score (Numeric/FACES): 8 - Related Data Allergies Allergy/AdvReac Type Severity Reaction Status Date / Time fentanyl Allergy Severe Bradycardia Verified 03/01/20 00:17 Home Meds: Home Meds Acetaminophen [Tylenol Arthritis] 650 mg PO TID PRN 02/25/20 [History] oxyCODONE 5 mg PO Q4H PRN #20 tab 02/26/20 [Rx] Past Medical History - Past Health History Medical/Surgical History: Denies Medical/Surgical History HEENT History: Reports: Sinusitis, Other (See Below) Other HEENT History: vision changes, pharyngitis Cardiovascular History: Reports: Hypertension Respiratory History: Reports: Other (See Below) Other Respiratory History: cough, URI Gastrointestinal History: Reports: Other (See Below) Other Gastrointestinal History: GI infection Genitourinary History: Reports: Renal Calculus STOCK MOVER History: Reports: None Musculoskeletal History: Reports: Fracture Other Musculoskeletal History: finger deformity, joint pain, right knee pain, right wrist pain Neurological History: Reports: Concussion, Headaches, Chronic Psychiatric History: Reports: None Endocrine/Metabolic History: Reports: Obesity/BMI 30+ Hematologic History: Reports: None Immunologic History: Reports: None Oncologic (Cancer) History: Reports: None Dermatologic History: Reports: None - Infectious Disease History Infectious Disease History: Reports: None - Past Surgical History Head Surgeries/Procedures: Reports: None Cardiovascular Surgical History: Reports: None Respiratory Surgical History: Reports: None GI Surgical History: Reports: None, Hernia, Abdominal Other GI Surgeries/Procedures: repair on February Male Surgical History: Reports: Lithotripsy (ESWL) Endocrine Surgical History: Reports: None Neurological Surgical History: Reports: None Musculoskeletal Surgical History: Reports: Arthroscopic Knee, Other (See Below) Other Musculoskeletal Surgeries/Procedures:: ORIF right 5th finger, menisectomy Oncologic Surgical History: Reports: None Dermatological Surgical History: Reports: None Social & Family History - Family History Family Medical History: Noncontributory - Tobacco Use Smoking Status *Q: Never Smoker - Caffeine Use Caffeine Use: Reports: Coffee - Recreational Drug Use Recreational Drug Use: No - Living Situation & Occupation Living situation: Reports: , with Spouse, with Family (4 kids, grandson, son-in-law) Occupation: Employed ([employer]) ED ROS GENERAL - Review of Systems Review Of Systems: See Below Constitutional: Reports: No Symptoms HEENT: Reports: No Symptoms Respiratory: Reports: No Symptoms Cardiovascular: Reports: No Symptoms GI/Abdominal: Reports: Abdominal Pain. Denies: Constipation, Diarrhea, Nausea, Vomiting : Reports: No Symptoms Musculoskeletal: Reports: No Symptoms Skin: Reports: No Symptoms Neurological: Reports: No Symptoms Psychiatric: Reports: No Symptoms ED EXAM, GI/ABD - Physical Exam Exam: See Below Exam Limited By: No Limitations General Appearance: No: Alert, No Apparent Distress Head: Atraumatic, Normocephalic Neck: Normal Inspection, Supple, Non-Tender, Full Range of Motion Respiratory/Chest: No Respiratory Distress, Lungs Clear, Normal Breath Sounds Cardiovascular: Regular Rate, Rhythm, No Edema, No Murmur GI/Abdominal Exam: Normal Bowel Sounds, Soft, Other (She does have pain around the umbilicus and he has some ecchymosis near some of the port sites and these are tender as well. This gentleman is quite obese and it would be easy to miss an underlying fluid collection or abscess. We will proceed to CAT scan which will further reduce the possibility of an obstruction or other intra-abdominal pathology.). No: Guarding, Rigid, Rebound Back Exam: Normal Inspection. No: CVA Tenderness (L), CVA Tenderness (R) Extremities: Normal Inspection, No Pedal Edema Course - Vital Signs Last Recorded V/S: Last Vital Signs Temp 36.9 C 02/29/20 22:48 Pulse 71 02/29/20 22:48 Resp 20 02/29/20 22:48 BP 149/115 H 02/29/20 22:48 Pulse Ox 97 02/29/20 22:48 - Orders/Labs/Meds Orders: Active Orders 24 hr Category Date Time Status Abdomen Pelvis w Cont [CT] Stat Exams 03/01/20 00:00 Taken Lactated Ringers [Ringers, Lactated] 1,000 ml Med 02/29/20 23:45 Active IV ASDIRECTED Sodium Chloride 0.9% [Saline Flush] Med 03/01/20 00:51 Active 10 ml FLUSH ONETIME PRN Medication Orders Lactated Ringer's (Ringers, Lactated) 1,000 mls @ 125 mls/hr IV ASDIRECTED MARTÍN Sodium Chloride (Saline Flush) 10 ml FLUSH ONETIME PRN PRN Reason: Keep Vein Open Last Admin: 03/01/20 01:06 Dose: 10 ml Documented by: TOMY Labs: Laboratory Tests 02/29/20 02/29/20 03/01/20 Range/Units 23:48 23:48 00:47 WBC 10.58 H (4.23-9.07) K/mm3 RBC 4.52 L (4.63-6.08) M/mm3 Hgb 13.4 L (13.7-17.5) gm/dl Hct 39.2 L (40.1-51.0) % MCV 86.7 (79.0-92.2) fl MCH 29.6 (25.7-32.2) pg MCHC 34.2 (32.2-35.5) g/dl RDW Std Deviation 38.3 (35.1-43.9) fL Plt Count 337 (163-337) K/mm3 MPV 9.2 L (9.4-12.3) fl Neut % (Auto) 64.0 (34.0-67.9) % Lymph % (Auto) 24.3 (21.8-53.1) % [place] % (Auto) 6.6 (5.3-12.2) % Eos % (Auto) 4.5 (0.8-7.0) Baso % (Auto) 0.3 (0.1-1.2) % Neut # (Auto) 6.77 H (1.78-5.38) K/mm3 Lymph # (Auto) 2.57 (1.32-3.57) K/mm3 [place] # (Auto) 0.70 (0.30-0.82) K/mm3 Eos # (Auto) 0.48 (0.04-0.54) K/mm3 Baso # (Auto) 0.03 (0.01-0.08) K/mm3 Manual Slide Review Sodium 139 (136-145) mEq/L Potassium 3.8 (3.5-5.1) mEq/L Chloride 104 (98-107) mEq/L Carbon Dioxide 28 (21-32) mEq/L Anion Gap 10.8 (5-15) BUN 14 (7-18) mg/dL Creatinine 1.2 (0.7-1.3) mg/dL Est Cr Clr Drug Dosing 74.21 mL/min Estimated GFR (MDRD) > 60 (>60) mL/min BUN/Creatinine Ratio 11.7 L (14-18) Glucose 109 H (74-106) mg/dL Calcium 8.6 (8.5-10.1) mg/dL Total Bilirubin 0.4 (0.2-1.0) mg/dL AST 12 L (15-37) U/L ALT 24 (16-63) U/L Alkaline Phosphatase 100 (46-116) U/L Total Protein 7.3 (6.4-8.2) g/dl Albumin 3.6 (3.4-5.0) g/dl Globulin 3.7 gm/dL Albumin/Globulin Ratio 1.0 (1-2) Urine Color Yellow (Yellow) Urine Appearance Clear (Clear) Urine pH 7.5 (5.0-8.0) Ur Specific [place] 1.025 (1.005-1.030) Urine Protein Negative (Negative) Urine Glucose (UA) Negative (Negative) Urine Ketones Negative (Negative) Urine Occult Blood Negative (Negative) Urine Nitrite Negative (Negative) Urine Bilirubin Negative (Negative) Urine Urobilinogen 0.2 (0.2-1.0) Ur Leukocyte Esterase Negative (Negative) Meds: Medications Generic Name Dose Route Start Last Admin Trade Name Freq PRN Reason Stop Dose Admin Lactated Ringer's 1,000 mls @ 125 mls/hr 02/29/20 23:45 Ringers, Lactated IV ASDIRECTED MARTÍN Sodium Chloride 10 ml 03/01/20 00:51 03/01/20 01:06 Saline Flush FLUSH 10 ml ONETIME PRN Administration Keep Vein Open Discontinued Medications Generic Name Dose Route Start Last Admin Trade Name Freq PRN Reason Stop Dose Admin Diatrizoate Meglum/Diatrizoate Sod 120 ml 03/01/20 00:51 03/01/20 01:06 Gastrografin 37% PO 03/01/20 00:52 120 ml ONETIME ONE Administration Fentanyl 100 mcg 02/29/20 23:32 03/01/20 01:49 Sublimaze IVPUSH 02/29/20 23:33 Not Given ONETIME ONE Lactated Ringer's 500 mls @ 999 mls/hr 02/29/20 23:31 02/29/20 23:49 Ringers, Lactated IV 03/01/20 00:01 999 mls/hr .BOLUS ONE Administration Iopamidol 125 ml 03/01/20 00:50 03/01/20 01:05 Isovue-300 (61%) IVPUSH 03/01/20 00:51 125 ml ONETIME ONE Administration - Re-Assessments/Exams Free Text/Narrative Re-Assessment/Exam: 03/01/20 03:06 Laboratory evaluation is really unrevealing he does not have a bladder infection his white count is subtly elevated which is probably to be expected. Chemistries as above. Had a CT scratch that the patient did have a CT done that showed a small amount of gas surrounding the umbilicus consistent with recent surgery and he had some stranding in the area of the umbilicus. Infection cannot be excluded however given that the patient is not running fevers his white count is appropriately minimally elevated I do not believe infection is an active process at this point. This is all explained in detail with the patient and his . Early in the patient's course I did put an order in for fentanyl. However the patient declined this because he was not moving around very much and was not having pain. The patient has done well here in the emergency room. He is only having pain when he moves. I did discuss this with the patient that trying to control pain with motion is really difficult especially in his situation because he only seems to have pain when he tries to move if he turns his torso and that sort. If he sitting still he does fine. I did explain this is difficult pain to treat because we can mask some of his pain when he is moving but the needs to get his spend a good portion of his time being overly sedated and that comes with risks such as not breathing well developing pneumonia and other problems. After hearing this the patient is very comfortable staying on his current dosing regimen of oxycodone 5 mg every 4 hours as needed. He is also using Tylenol at a dose that sounds appropriate and he is using ibuprofen. The patient will call Dr. Mart later today to discuss this and see if he recommends any changes. Departure - Departure Time of Disposition: 03:08 Disposition: Home, Self-Care 01 Clinical Impression: Postoperative abdominal pain - Discharge Information Instructions: Abdominal Pain, Adult, [id number] Referrals: Basilia Muniz PA-C [Primary Care Provider] - Forms: ED Department Discharge Additional Instructions: Return to the emergency room with any questions problems or worsening symptoms. Call Dr. Mart later today and discuss if any changes need to occur with your pain management. Sepsis Event Note (ED) - Evaluation Sepsis Screening Result: No Definite Risk - Focused Exam Vital Signs: Vital Signs Temp Pulse Resp BP Pulse Ox 02/29/20 22:48 36.9 C 71 20 149/115 H 97 - My Orders Last 24 Hours: My Active Orders 02/29/20 23:45 Lactated Ringers [Ringers, Lactated] 1,000 ml IV ASDIRECTED 03/01/20 00:00 Abdomen Pelvis w Cont [CT] Stat 03/01/20 00:51 Sodium Chloride 0.9% [Saline Flush] 10 ml FLUSH ONETIME PRN - Assessment/Plan Last 24 Hours: My Active Orders 02/29/20 23:45 Lactated Ringers [Ringers, Lactated] 1,000 ml IV ASDIRECTED 03/01/20 00:00 Abdomen Pelvis w Cont [CT] Stat 03/01/20 00:51 Sodium Chloride 0.9% [Saline Flush] 10 ml FLUSH ONETIME PRN
[2020-02-29] MEDS ORDERED: Lactated Ringers 500 ML IV ONE (23:31)
[2020-02-29] MEDS ORDERED: fentaNYL 100 MCG/2 ML SDV IVPUSH ONE (23:32)
[2020-02-29] MEDS ORDERED: Lactated Ringers 1,000 ML IV SCH (23:45)
[2020-03-01] MEDS ORDERED: Iopamidol 612 MG/ML 100 ML Bottle IVPUSH ONE (00:50)
[2020-03-01] MEDS ORDERED: Sodium Chloride 0.9% 10 ML Syringe FLUSH PRN (00:51)
[2020-03-01] MEDS ORDERED: Diatrizoate Meglumine/Diatrizoate Sodium 37% 120 ML Bottle PO ONE (00:51)
--- NOTE | 2020-03-01 07:04 | CT ---
CT abdomen and pelvis Technique: Multiple axial sections were obtained from above the dome of the diaphragm inferiorly through the pubic symphysis. Intravenous and oral contrast was utilized. Delayed images were also obtained through the bladder. Comparison: No prior abdominal imaging is available. Findings: Inflammatory type change is noted around the umbilicus. Small fat-containing umbilical hernia is noted. Small amount of soft tissue air noted within the adjacent soft tissues around the umbilicus. Minimal fat-containing bilateral inguinal hernias are noted. Visualized lung bases show nothing acute. Liver contains no focal parenchymal abnormality. Spleen appears normal. Adrenal glands show no nodule. Pancreas shows no discrete abnormality. Kidneys show symmetric contrast enhancement. Small nonobstructing calculi are seen within both kidneys. No ureteral dilatation is seen. Delayed images shows contrast within the distal ureters and within the bladder. Aorta shows no aneurysm. Gallbladder contains no calcified gallstones. No retroperitoneal adenopathy or mesenteric abnormalities are seen. No pelvic mass or adenopathy is seen. No free fluid is seen. Appendix is seen and is normal in size. Bone window settings were reviewed which shows no acute osseous finding. Impression: 1. Small fat-containing umbilical hernia with surrounding inflammatory change and a small amount of subcutaneous air. At this point uncertain if findings represent postoperative inflammatory change or postoperative infection. 2. Multiple small nonobstructing calculi within both kidneys. 3. Other findings believed to be incidental as described above. Diagnostic code #3 This report was dictated in MDT I agree with preliminary report from [facility], finalized on 03/01/20, 2:28 AM Central Daylight Time
== END 2020-03-01 03:18 | disposition home or self-care (01) ==
LOC: JD.ED 22:34
DX: G89.18 Other acute postprocedural pain (principal); R10.30 Lower abdominal pain, unspecified; I10 Essential (primary) hypertension; E66.9 Obesity, unspecified; Z68.42 Body mass index [BMI] 45.0-49.9, adult; Z88.5 Allergy status to narcotic agent; Z88.8 Allergy status to other drugs, medicaments and biological substances; Z98.890 Other specified postprocedural states
CPT/HCPCS: 36415; 74177; 80053; 81003; 85025; 99284; J7120; Q9963; Q9967

== ENCOUNTER 2020-04-15 18:27 | Emergency (ER) | payer BC ==
[2020-04-15 18:52] VITALS: BP 140/98; PULSE 76
--- NOTE | 2020-04-15 19:31 | EDM.PDOC ---
ED HPI GENERAL MEDICAL PROBLEM - General Chief Complaint: Abdominal Pain Stated Complaint: HERNIA INCISION INFECTED Time Seen by Provider: 04/15/20 19:03 Source of Information: Reports: Patient History Limitations: Reports: No Limitations - History of Present Illness INITIAL COMMENTS - FREE TEXT/NARRATIVE: Mr. Lee is a very pleasant 44-year-old gentleman who underwent a laparoscopic umbilical herniorrhaphy with mesh on 02/26/2020. The patient tells me that he was doing well up until this past Sunday night, 04/11/2020, when he felt considerable pain when he was hugged by a grandchild. He states that he looked and saw a "big pimple" to his lower right abdomen. He was therefore seen by his surgeon in the office yesterday, 04/14/2020. The patient states that his surgeon lanced the wound and packed it with gauze packing. He was prescribed Keflex 500 mg po BID, that he states he is taking as prescribed. The patient now presents the ED stating that he is having a burning sensation, warmth to touch, and a bloody serosanguineous drainage from the wound, since around 13:00 this afternoon. He states that he called the office of his Surgeon, and was told to change the packing once a day, but he states that he had not been instructed on how to do that, or given any supplies to do so. He states that he was told that he can cook pickled meat the necessary supplies at [facility], but he states that he does not know what to get. No recent fever, nausea, vomiting, constipation, diarrhea, or urinary symptoms. Here in the ED, the patient's initial BP is mildly elevated at 140/98, otherwise, he is hemodynamically stable, afebrile, saturating 99% on room air. Other than his right lower abdominal wall infection, the patient denies having a recent fever, chills, sore throat, ear pain, nasal or sinus congestion, cough, dyspnea, chest pain, palpitations, nausea, vomiting, constipation, diarrhea, abdominal pain, urinary symptoms, recent weight gain or weight loss, recent bloody bowel movements or black bowel movements, recent joint aches, headaches, or rashes. The patient's PCP is FRANC Kingsley. His Surgeon is Dr. Mega Mart. Right Lower Abdomen Pain Score (Numeric/FACES): 7 - Related Data Allergies Allergy/AdvReac Type Severity Reaction Status Date / Time fentanyl Allergy Severe Bradycardia Verified 03/01/20 00:17 Home Meds: Home Meds Acetaminophen [Tylenol Arthritis] 650 mg PO TID PRN 02/25/20 [History] cephALEXin [Keflex] 500 mg PO BID 04/15/20 [History] Past Medical History Genitourinary History: Reports: Renal Calculus Musculoskeletal History: Reports: Fracture (left 5th finger) Endocrine/Metabolic History: Reports: Obesity/BMI 30+ - Past Surgical History GI Surgical History: Reports: Hernia, Abdominal (laparoscopic umbilical with mesh, 02/26/2020) Male Surgical History: Reports: Lithotripsy (ESWL) Musculoskeletal Surgical History: Reports: Arthroscopic Knee (left), Other (See Below) (Left 5th finger fusion) Social & Family History - Family History Family Medical History: Noncontributory - Tobacco Use Smoking Status *Q: Never Smoker - Caffeine Use Caffeine Use: Reports: Coffee - Alcohol Use Alcohol Use History: Yes Alcohol Use Frequency: Socially - Recreational Drug Use Recreational Drug Use: No - Living Situation & Occupation Living situation: Reports: , with Spouse, with Family (4 kids, grandson, son-in-law) Occupation: Employed ([employer]) ED ROS GENERAL - Review of Systems Review Of Systems: Comprehensive ROS is negative, except as noted in HPI. ED EXAM, SKIN/RASH Exam: See Below Exam Limited By: No Limitations General Appearance: Alert, WD/WN, No Apparent Distress GI/Abdominal: Normal Bowel Sounds, Soft, No Organomegaly, No Distention, No Abnormal Bruit, No Mass, Other (An approximately 2 cm x 4 cm dressing taped was to the right lower quadrant. The dressing was removed, revealing an approximately 1 cm piece of packing gauze emanating from a small puncture wound with minimal associated erythema or induration. Mild associated tenderness to palpation surrounding the wound.) Course - Vital Signs Last Recorded V/S: Last Vital Signs Temp 36.7 C 04/15/20 18:46 Pulse 76 04/15/20 18:46 Resp 20 04/15/20 18:46 BP 140/98 H 04/15/20 18:46 Pulse Ox 99 04/15/20 18:46 - Re-Assessments/Exams Free Text/Narrative Re-Assessment/Exam: 04/15/20 19:24 As above, the patient underwent a laparoscopic umbilical hernia repair on 02/26/2020, then discovered an infection to one of the laparoscopy surgical wounds this past 04/11/2020. He was seen by his Surgeon yesterday, who lanced the wound and packed it with packing gauze, and prescribed the patient Keflex 5 00 mg po BID. The patient is supposed to change his packing once a day, but now presents the ED stating that he was not instructed on how to do that or given any supplies. On examination, the size of the lesion in the right lower quadrant is surprisingly small with minimal erythema. There is an approximately 1 cm of packing gauze emanating from the wound. I will have Tatyana FLOOD remove the packing gauze, replace it with fresh packing gauze, instruct the patient on how to do it, then give him the bottle of remaining packing gauze. The patient states that he showers nightly, therefore I recommended that he remove the packing gauze before he gets in the shower, bathe as he usually would, then have his pack the wound and cover it with a Band-Aid, simply to protect the projecting packing gauze from getting snagged on something and being accidentally removed. I explained that over time, he will be able to pack less and less packing gauze into the wound, especially since he is on an antibiotic. I would expect this to resolve quickly. Departure - Departure Time of Disposition: 19:27 Disposition: Home, Self-Care 01 Condition: Good Clinical Impression: Postoperative wound infection - Discharge Information *PRESCRIPTION DRUG MONITORING PROGRAM REVIEWED*: Not Applicable *COPY OF PRESCRIPTION DRUG MONITORING REPORT IN PATIENT RAKEL: Not Applicable Instructions: Wound Infection, [id number] Referrals: Basilia Muniz PA-C [Primary Care Provider] - Mega Mart MD [Physician] - Forms: ED Department Discharge Additional Instructions: You were seen in the emergency room for burning pain, warmth to touch, and bloody drainage from an infected surgical wound on your lower right abdominal wall. On examination, the infection appears to be relatively small. There was packing in the wound, which was removed by your nurse, and replaced, with instructions on how to do that. Going forward, we recommend that you remove the packing just prior to getting into the shower, nightly. Bathe as you normally would. Once you are out of the shower, have your repack the wound, leaving about 1 cm of packing gauze hanging out of the wound, to act as a "wick". The wound and wick can then be covered by a Band-Aid. Continue to take your previously prescribed Keflex twice a day. Follow-up with your Surgeon, Dr. Mega Mart, as needed. If any other problems, please do not hesitate to return to the ER. Sepsis Event Note (ED) - Evaluation Sepsis Screening Result: No Definite Risk - Focused Exam Vital Signs: Vital Signs Temp Pulse Resp BP Pulse Ox 04/15/20 18:46 36.7 C 76 20 140/98 H 99
== END 2020-04-15 19:37 | disposition home or self-care (01) ==
LOC: JD.ED 18:27
DX: T81.41XA Infection following a procedure, superficial incisional surgical site, initial encounter (principal); E66.9 Obesity, unspecified; Z68.42 Body mass index [BMI] 45.0-49.9, adult
CPT/HCPCS: 99282; 99283

== ENCOUNTER 2021-05-02 18:18 | Emergency (ER) | payer SELFPAY ==
[2021-05-02 19:53] VITALS: BP 150/102; PULSE 65
[2021-05-02] MEDS ORDERED: Ibuprofen 800 MG Tab PO ONE (21:11)
--- NOTE | 2021-05-02 21:11 | EDM.PDOC ---
ED HPI GENERAL MEDICAL PROBLEM - General Chief Complaint: Lower Extremity Injury/Pain Stated Complaint: ANKLE PAIN Time Seen by Provider: 05/02/21 20:36 Source of Information: Reports: Patient History Limitations: Reports: No Limitations - History of Present Illness INITIAL COMMENTS - FREE TEXT/NARRATIVE: 45-year-old male presents the emergency department with complaints of a right ankle injury. Per the patient's report at about 11:00 today he was ambulating and stepped in a hole and states he rotated his ankle laterally. He states he did hear popping and cracking at the time of the event. He states as the day progressed it has become progressively more difficult to ambulate and pain is radiating up his Achilles tendon into his posterior calf. He denies taking any Tylenol or ibuprofen prior to coming and has he states he did not want to ruin my exam or mask anything. Right Ankle Pain Score (Numeric/FACES): 8 - Related Data Allergies Allergy/AdvReac Type Severity Reaction Status Date / Time fentanyl Allergy Severe Bradycardia Verified 03/01/20 00:17 Home Meds: Home Meds Acetaminophen [Tylenol Arthritis] 650 mg PO TID PRN 02/25/20 [History] cephALEXin [Keflex] 500 mg PO BID 04/15/20 [History] Past Medical History - Past Health History Medical/Surgical History: Denies Medical/Surgical History HEENT History: Reports: Sinusitis, Other (See Below) Other HEENT History: vision changes, pharyngitis Cardiovascular History: Reports: Hypertension Respiratory History: Reports: Other (See Below) Other Respiratory History: cough, URI Gastrointestinal History: Reports: Other (See Below) Other Gastrointestinal History: GI infection Genitourinary History: Reports: Renal Calculus FIRST RESPONDER History: Reports: None Musculoskeletal History: Reports: Fracture Other Musculoskeletal History: finger deformity, joint pain, right knee pain, right wrist pain Neurological History: Reports: Concussion, Headaches, Chronic Psychiatric History: Reports: None Endocrine/Metabolic History: Reports: Obesity/BMI 30+ Hematologic History: Reports: None Immunologic History: Reports: None Oncologic (Cancer) History: Reports: None Dermatologic History: Reports: None - Infectious Disease History Infectious Disease History: Reports: None - Past Surgical History Head Surgeries/Procedures: Reports: None Cardiovascular Surgical History: Reports: None Respiratory Surgical History: Reports: None GI Surgical History: Reports: Hernia, Abdominal Other GI Surgeries/Procedures: repair on February Male Surgical History: Reports: Lithotripsy ([facility]) Endocrine Surgical History: Reports: None Neurological Surgical History: Reports: None Musculoskeletal Surgical History: Reports: Arthroscopic Knee, Other (See Below) Other Musculoskeletal Surgeries/Procedures:: ORIF right 5th finger, menisectomy Oncologic Surgical History: Reports: None Dermatological Surgical History: Reports: None Social & Family History - Family History Family Medical History: No Pertinent Family History - Tobacco Use Tobacco Use Status *Q: Never Tobacco User - Caffeine Use Caffeine Use: Reports: Coffee, Soda - Recreational Drug Use Recreational Drug Use: No - Living Situation & Occupation Living situation: Reports: , with Spouse, with Family (4 kids, grandson, son-in-law) Occupation: Employed ([employer]) Review of Systems - Review of Systems Review Of Systems: Comprehensive ROS is negative, except as noted in HPI. ED EXAM, GENERAL - Physical Exam Exam: See Below Exam Limited By: No Limitations General Appearance: Alert, WD/WN, Mild Distress Ears: Normal External Exam, Hearing Grossly Normal Nose: Normal Inspection Throat/Mouth: Normal Inspection, Normal Lips, Normal Voice, No Airway Compromise Head: Atraumatic Neck: Normal Inspection, Supple Respiratory/Chest: No Respiratory Distress, No Accessory Muscle Use Cardiovascular: Normal Peripheral Pulses, Regular Rate, Rhythm. No: No Edema (Edema noted to the lateral and medial aspect of right ankle; edema noted to Achilles area) Peripheral Pulses: 2+: Dorsalis Pedis (L), Dorsalis Pedis (R) GI/Abdominal: No Distention (Male) Exam: Deferred Rectal (Males) Exam: Deferred Back Exam: Normal Inspection Extremities: Normal Range of Motion, Normal Capillary Refill, Pedal Edema (Right ankle). No: Normal Inspection (He noted to medial lateral aspect of right ankle), Non-Tender (Medial and lateral aspect of right ankle. Dorsal aspect of right foot. Achilles tendon radiating up to posterior calf) Neurological: Alert, Oriented, Normal Cognition Psychiatric: Normal Affect, Normal Mood Skin Exam: Warm, Dry, Intact, Normal Color, No Rash Lymphatic: No Adenopathy Course - Vital Signs Text/Narrative:: As stated above, patient presents with a right ankle injury. Upon exam, patient does have swelling noted to the medial and lateral aspect of the ankle. He also does have swelling noted to the Achilles tendon area. Entire ankle is tender to palpation as well as lateral side of the dorsal aspect of the foot. Pain with palpation noted up the middle of his posterior calf. Patient does have good strength noted with plantar and dorsiflexion. X-rays were completed and there is no acute fracture appreciated. He will be discharged home with crutches to prevent further injury and a note for 3 days off work. He has been instructed to follow-up with Dr. Mccain in about a week if it is not any better. Last Recorded V/S: Last Vital Signs Temp 97.0 F 05/02/21 19:50 Pulse 65 05/02/21 19:50 Resp 20 05/02/21 19:50 BP 150/102 H 05/02/21 19:50 Pulse Ox 97 05/02/21 19:50 - Orders/Labs/Meds Orders: Active Orders 24 hr Category Date Time Status Ankle Min 3V Rt [CR] Stat Exams 05/02/21 20:20 Taken DME for Discharge [COMM] Stat Oth 05/02/21 21:10 Ordered Meds: Medications Discontinued Medications Generic Name Dose Route Start Last Admin Trade Name Sandie PRN Reason Stop Dose Admin Ibuprofen 800 mg 05/02/21 21:11 Ibuprofen 800 Mg Tab PO 05/02/21 21:12 ONETIME ONE Departure - Departure Time of Disposition: 21:27 Disposition: Home, Self-Care 01 Condition: Good Clinical Impression: Injury of right ankle Qualifiers: Encounter type: initial encounter Qualified Code(s): S99.911A - Unspecified injury of right ankle, initial encounter - Discharge Information Instructions: Crutch Use, Adult, [id number], Pain Medicine Instructions, [id number] Referrals: Basilia Muniz PA-C [Primary Care Provider] - Forms: ED Department Discharge Additional Instructions: You were seen in the emergency department today with complaints of right ankle injury. Exam and x-rays were completed and they were essentially unremarkable. You likely sprained the area which is causing pain and inflammation. Recommend that you take ibuprofen 600 mg every 6 hours as needed for pain and inflammation. Use ice or heat for comfort. Elevate the right foot as much as possible. Use crutches when up ambulating to be nonweightbearing. If you are still having pain in about a week it is recommended that you follow-up with the orthopedic surgeon, Dr. Mccain. Phone number for [facility] is [phone]. Sepsis Event Note (ED) - Focused Exam Vital Signs: Vital Signs Temp Pulse Resp BP Pulse Ox 05/02/21 19:50 97.0 F 65 20 150/102 H 97 - My Orders Last 24 Hours: My Active Orders 05/02/21 20:20 Ankle Min 3V Rt [CR] Stat 05/02/21 21:10 DME for Discharge [COMM] Stat - Assessment/Plan Last 24 Hours: My Active Orders 05/02/21 20:20 Ankle Min 3V Rt [CR] Stat 05/02/21 21:10 DME for Discharge [COMM] Stat
--- NOTE | 2021-05-03 10:04 | CR ---
Right ankle: 4 views of the right ankle were obtained. Comparison: No prior ankle study is available. Ankle mortise is symmetric. Small calcifications are seen anterior and posterior to the ankle which are believed to be dystrophic. No acute fracture, dislocation or other bony abnormality is appreciated. Impression: 1. Incidental soft tissue calcifications. 2. Nothing acute is seen on right ankle exam. Diagnostic code #2
== END 2021-05-02 21:58 | disposition home or self-care (01) ==
LOC: JD.ED 18:18
DX: S99.911A Unspecified injury of right ankle, initial encounter (principal); I10 Essential (primary) hypertension; E66.9 Obesity, unspecified; Z68.42 Body mass index [BMI] 45.0-49.9, adult; Z88.5 Allergy status to narcotic agent; X50.1XXA Overexertion from prolonged static or awkward postures, initial encounter
CPT/HCPCS: 73610; 99283; A9270

== ENCOUNTER → 2021-07-17 22:02 | Emergency (ER) | payer BC | END | disposition left against medical advice (07) | LOC: JD.ED 22:02 | DX: Z53.21 Procedure and treatment not carried out due to patient leaving prior to being seen by health care provider (principal) ==

== ENCOUNTER 2023-12-26 12:45 | Emergency (ER) | payer BC, MEDICAID ==
[2023-12-26 13:06] VITALS: PULSE 74
[2023-12-26] MEDS: Sodium Chloride 0.9% 1,000 ML IV SCH (13:37)
[2023-12-26] MEDS: Ondansetron 4 MG/2 ML SDV IVPUSH ONE (13:38)
[2023-12-26] MEDS: Ketorolac 30 MG/ML SDV IVPUSH ONE (13:38)
[2023-12-26 14:24] LABS: ANION GAP 13.4 (5-15); CALCIUM 8.8 mg/dL (8.5-10.1); EST CRCL DRUG DOSING (CG) 82.41 mL/min; POTASSIUM,K 3.4 mEq/L (3.5-5.1)
[2023-12-26 14:36] LABS: APPEARANCE,URINE CLEAR (Clear); BILIRUBIN,URINE NEGATIVE (Negative); COLOR,URINE YELLOW (Yellow); GLUCOSE,URINE NEGATIVE (Negative); KETONES,URINE NEGATIVE (Negative); LEUKOCYTE ESTERASE,URINE NEGATIVE (Negative); NITRITE,URINE NEGATIVE (Negative); OCCULT BLOOD,URINE 2+ (Negative); PROTEIN,URINE TRACE (Negative); UROBILINOGEN,URINE 0.2 (0.2-1.0)
[2023-12-26] MEDS: Losartan 100 MG Tab PO STA (14:37)
[2023-12-26] MEDS: Hydrochlorothiazide 12.5 MG Cap PO STA (14:37)
[2023-12-26] MEDS ORDERED: Naloxone 0.4 MG/ML SDV IVPUSH PRN (14:44)
[2023-12-26 14:45] LABS: AMORPHOUS SEDIMENT,URINE MODERATE /hpf (NOT SEEN); BACTERIA,URINE FEW /hpf (FEW); EPITHELIAL CELLS,URINE 0-5 /hpf (0-5); MUCUS,URINE MANY /hpf (FEW); RBC,URINE 20-30 /hpf (0-5); WBC,URINE 0-5 /hpf (0-5)
[2023-12-26 14:53] VITALS: BP 215/164
[2023-12-26] MEDS: HYDROmorphone 0.5 MG/0.5 ML Syringe IVPUSH ONE (14:53)
[2023-12-26] MEDS: amLODIPine 10 MG Tab PO STA (14:53)
== END 2023-12-26 15:31 | disposition home or self-care (01) ==
LOC: JD.ED 12:45
DX: N13.2 Hydronephrosis with renal and ureteral calculous obstruction (principal); I10 Essential (primary) hypertension; E66.9 Obesity, unspecified; Z79.899 Other long term (current) drug therapy; Z88.6 Allergy status to analgesic agent
CPT/HCPCS: 36415; 74176; 80048; 81001; 96361; 96374; 96375; 99284; A9270; J1170; J1885; J2405; J7030

== ENCOUNTER 2024-04-08 18:04 | Emergency (ER) | payer MEDICAID ==
[2024-04-08] MEDS: Ketorolac 60 MG/2 ML SDV IM ONE (19:34)
[2024-04-08] MEDS: Sulfamethoxazole/Trimethoprim 800-160 MG Tab PO ONE (19:34)
[2024-04-08 19:37] VITALS: BP 147/94; PULSE 81
== END 2024-04-08 19:30 | disposition home or self-care (01) ==
LOC: JD.ED 18:04
DX: L03.116 Cellulitis of left lower limb (principal); I10 Essential (primary) hypertension; E66.9 Obesity, unspecified; Z79.899 Other long term (current) drug therapy; Z88.5 Allergy status to narcotic agent; Z68.43 Body mass index [BMI] 50.0-59.9, adult
CPT/HCPCS: 96372; 99282; A9270; J1885; 99283

== ENCOUNTER 2025-05-13 17:56 | Emergency (ER) | payer MEDICAID ==
[2025-05-13] MEDS ORDERED: Sodium Chloride 0.9% 10 ML Syringe FLUSH PRN (18:28)
[2025-05-13 19:15] LABS: BASOPHILS ABSOLUTE AUTO 0.0 K/mm3 (0.0-0.2); BASOPHILS PERCENT AUTO 0.5 % (0.0-1.0); EOSINOPHILS ABSOLUTE AUTO 0.6 K/mm3 (0.0-0.4); EOSINOPHILS PERCENT AUTO 7.6 % (0.0-6.0); IMMATURE GRAN ABSOLUTE AUTO 0.07 K/mm3 (0.00-0.05); IMMATURE GRAN PERCENT AUTO 0.9 % (0.0-0.4); LYMPHOCYTES ABSOLUTE AUTO 2.1 K/mm3 (1.0-4.8); LYMPHOCYTES PERCENT AUTO 26.5 % (24.0-44.0); MEAN PLATELET VOLUME 9.1 fl (9.4-12.4); MONOCYTES ABSOLUTE AUTO 0.6 K/mm3 (0.0-0.8); MONOCYTES PERCENT AUTO 7.9 % (0.0-8.0); NEUTROPHILS ABSOLUTE AUTO 4.4 K/mm3 (1.8-7.7); NEUTROPHILS PERCENT AUTO 56.6 % (41.0-71.0); NRBC ABSOLUTE 0.00 (0.00-0.02); NRBC PERCENT 0.0 % (0.0-0.2); PLATELET COUNT,PLT 322 K/mm3 (150-400); RED BLOOD CELL COUNT 4.37 M/mm3 (4.52-5.90); WHITE BLOOD CELL COUNT,WBC 7.74 K/mm3 (3.9-11.3)
[2025-05-13 19:48] LABS: A/G RATIO 0.9 (1-2); ALANINE AMINOTRANSFERASE,ALT 18.0 U/L (16-63); ASPARTATE AMNIOTRANSFERASE,AST 12.0 U/L (15-37); BILIRUBIN TOTAL 0.4 mg/dL (0.2-1.0); BLOOD UREA NITROGEN,BUN 12.0 mg/dL (7-18); CARBON DIOXIDE,CO2 27.0 mEq/L (21-32); CHLORIDE,CL 103.0 mEq/L (98-107); CREATININE 0.8 mg/dL (0.7-1.3); EST CRCL DRUG DOSING (CG) 105.58 mL/min; ESTIMATED GFR 109.0 mL/min (>60); GLUCOSE RANDOM 108.0 mg/dL (70-99); POTASSIUM,K 3.8 mEq/L (3.5-5.1); PROTEIN TOTAL,TP 7.1 g/dl (6.4-8.2); SODIUM,NA 138.0 mEq/L (136-145); TROPONIN I HIGH SENSITIVITY 8.0 pg/mL (<=76); TSH 0.593 uIU/mL (0.358-3.74)
[2025-05-13 22:00] VITALS: BP 145/86; PULSE 76
== END 2025-05-13 20:50 | disposition home or self-care (01) ==
LOC: JD.ED 17:56
DX: R53.1 Weakness (principal); R51.9 Headache, unspecified; R06.89 Other abnormalities of breathing; I10 Essential (primary) hypertension; E66.9 Obesity, unspecified; Z88.5 Allergy status to narcotic agent; Z79.899 Other long term (current) drug therapy; Z68.42 Body mass index [BMI] 45.0-49.9, adult
CPT/HCPCS: 36415; 70450; 70450-26; 71046; 71046-26; 80053; 84443; 84484; 85025; 85379; 86140; 93005; 93010; 99283; 99285

== ENCOUNTER 2025-07-15 11:39 | Emergency (ER) | payer SELFPAY ==
[2025-07-15 11:53] VITALS: PULSE 88
[2025-07-15] MEDS: LORazepam 2 MG/ML SDV IVPUSH ONE (12:10)
[2025-07-15 12:28] LABS: BASOPHILS ABSOLUTE AUTO 0.0 K/mm3 (0.0-0.2); BASOPHILS PERCENT AUTO 0.4 % (0.0-1.0); EOSINOPHILS ABSOLUTE AUTO 0.3 K/mm3 (0.0-0.4); EOSINOPHILS PERCENT AUTO 3.1 % (0.0-6.0); IMMATURE GRAN ABSOLUTE AUTO 0.08 K/mm3 (0.00-0.05); IMMATURE GRAN PERCENT AUTO 0.9 % (0.0-0.4); LYMPHOCYTES ABSOLUTE AUTO 1.1 K/mm3 (1.0-4.8); LYMPHOCYTES PERCENT AUTO 12.1 % (24.0-44.0); MEAN PLATELET VOLUME 9.3 fl (9.4-12.4); MONOCYTES ABSOLUTE AUTO 1.0 K/mm3 (0.0-0.8); MONOCYTES PERCENT AUTO 10.6 % (0.0-8.0); NEUTROPHILS ABSOLUTE AUTO 6.7 K/mm3 (1.8-7.7); NEUTROPHILS PERCENT AUTO 72.9 % (41.0-71.0); NRBC ABSOLUTE 0.00 (0.00-0.02); NRBC PERCENT 0.0 % (0.0-0.2); PLATELET COUNT,PLT 326 K/mm3 (150-400); RED BLOOD CELL COUNT 4.68 M/mm3 (4.52-5.90); WHITE BLOOD CELL COUNT,WBC 9.21 K/mm3 (3.9-11.3)
[2025-07-15 12:51] LABS: INR 1.0
[2025-07-15 12:53] LABS: A/G RATIO 0.9 (1-2); ALANINE AMINOTRANSFERASE,ALT 15 U/L (16-63); ASPARTATE AMNIOTRANSFERASE,AST 15 U/L (15-37); BILIRUBIN TOTAL 0.5 mg/dL (0.2-1.0); BLOOD UREA NITROGEN,BUN 9 mg/dL (7-18); CARBON DIOXIDE,CO2 25 mEq/L (21-32); CHLORIDE,CL 103 mEq/L (98-107); CREATININE 0.9 mg/dL (0.7-1.3); ESTIMATED GFR 105 mL/min (>60); GLUCOSE RANDOM 112 mg/dL (70-99); POTASSIUM,K 3.5 mEq/L (3.5-5.1); PROTEIN TOTAL,TP 7.8 g/dl (6.4-8.2); PTT,PARTIAL THROMBOPLSTIN TIME 28.5 SECONDS (21.7-31.4); SODIUM,NA 138 mEq/L (136-145); TROPONIN I HIGH SENSITIVITY 5 pg/mL (<=76)
[2025-07-15 12:57] LABS: BUPRENORPHINE SCREEN,URINE NEGATIVE (CUTOFF=10); METHADONE SCREEN, URINE NEGATIVE (CUT0FF=200); METHAMPHETAMINES SCREEN, URINE NEGATIVE (CUTOFF=500); OXYCODONE SCREEN,URINE NEGATIVE (CUT0FF=100); THC SCREEN,URINE 20 NG/ML NEGATIVE (CUTOFF=50)
[2025-07-15 13:05] LABS: AMPHETAMINES SCREEN, URINE NEGATIVE (CUTOFF=500)
[2025-07-15 14:24] VITALS: BP 130/96
== END 2025-07-15 13:30 ==
LOC: JD.ED 11:39
DX: R07.9 Chest pain, unspecified (principal); F41.9 Anxiety disorder, unspecified; R06.4 Hyperventilation; I10 Essential (primary) hypertension; Z88.5 Allergy status to narcotic agent; Z91.030 Bee allergy status; Z79.899 Other long term (current) drug therapy
CPT/HCPCS: 36415; 71045; 80053; 80306; 83735; 83880; 84484; 85025; 85610; 85730; 93005; 96374; 99285; J2060; 93010; 99284